=== PATIENT | male | born 1955 | race Caucasian/White ===

== ENCOUNTER 2016-07-19 09:51 | Inpatient (IN) | payer MEDICARE, MEDICAID ==
--- NOTE | 2016-07-19 10:39 | ED Physician Chart ---
Chief Complaint/HPI - Patient Information Date Seen:: 07/19/16 Time Seen:: 10:30 Chief Complaint:: increased agitation History of Present Illness:: exhibiting increased agitation and striking out at [facility]. Allergies:: Allergies Allergy/AdvReac Type Severity Reaction Status Date / Time Penicillins [PCN] Allergy Mild RASH Verified 07/19/16 10:09 Sulfa (Sulfonamide Allergy Mild RASH Verified 07/19/16 10:10 Antibiotics) Vitals:: Vital Signs - 8 hr 07/19/16 10:00 Temp 98.0 F HR 60 RR 20 BP 142/79 O2 Sat % 94 Historian:: Patient Review:: Transfer documents Reviewed Review of Systems - Review of Systems General/Constitutional: No fever, No chills Skin: No skin lesions Head: No headache Eyes: No loss of vision ENT: No earache, No sore throat Neck: No neck pain, No swelling Cardio Vascular: No chest pain, No palpitations, No orthopnea Pulmonary: No SOB GI: No nausea, No vomiting G/U: No dysuria, No hematuria Musculoskeletal: No bone or joint pain Psychiatric: Prior psych history, Depression Hematopoietic: No bruising Allergic/Immuno: No urticaria, No angioedema Neurological: No syncope, No focal symptoms Past Medical History - Past Medical History Past Medical History: HTN, Dyslipidemia, Other (hyperlipidemia; s/p TBI; major depression; schizophrenia; anemia; seizures; vitamin D deficiency) Family History: Diabetes Melitus, HTN Surgical History: other (right frontal craniotomy for TBI for than 15 years ago ; two surgeries left hand) Psychiatricy History: Depression, Schizophrenia Medication: Reviewed Family Medical History - Family Member Mother Hx Family Diabetes: Yes Physical Exam - Physical Examination General/Constitutional: Well-developed, well-nourished, Alert, No distress Other Gen/Cons comments:: A and O to the exact date Other Head comments:: right frontal craniotomy scar Eyes: Lids, conjuctiva normal, PERRL Skin: Nl inspection, No rash, No skin lesions, No ecchymosis, Well hydrated, No lymphadenopathy ENMT: External ears, nose nl, TM canals nl, Nasal exam nl, Lips, teeth, gums nl , Oropharynx nl, Tonsils nl Neck: No nuchal rigidity Respiratory: Nl effort/Exclusion, Clear to Auscultation Cardio Vascular: RRR GI: No tenderness/rebounding/guarding : No CVA tenderness Extremities: No tenderness or effusion Neuro/Psych: Alert/oriented, No focal deficits Misc: Normal back Labs/Radiology/EKG Results - Lab Results Results: Laboratory Results - last 24 hr 07/19/16 07/19/16 07/19/16 10:00 10:48 10:48 WBC 7.8 RBC 4.47 Hgb 13.3 Hct 39.1 MCV 87.5 MCH 29.7 MCHC Differential 33.9 RDW 12.2 Plt Count 222 MPV 8.2 Neutrophils % 66.2 Lymphocytes % 23.0 Monocytes % 8.6 Eosinophils % 1.6 Basophils % 0.6 Sodium 134 L Potassium 4.2 Chloride 105 Carbon Dioxide 25.4 Anion Gap 7.8 BUN 15 Creatinine 1.0 Est GFR ( Amer) > 60.0 Est GFR (Non-Af Amer) > 60.0 BUN/Creatinine Ratio 15.0 Glucose 88 Calcium 9.8 Total Bilirubin 0.3 AST 20 ALT 19 Alkaline Phosphatase 51 Total Protein 7.1 Albumin 4.2 Globulin 2.9 Albumin/Globulin Ratio 1.5 TSH Urine Source CLEAN C Urine Color YELLOW Urine Clarity SL. CLOUDY Urine pH 7.0 Ur Specific [place] 1.020 Urine Protein NEGATIVE Urine Glucose (UA) NEGATIVE Urine Ketones NEGATIVE Urine Blood NEGATIVE Urine Nitrate NEGATIVE Urine Bilirubin NEGATIVE Urine Urobilinogen 0.2 Ur Leukocyte Esterase NEGATIVE Urine RBC NONE SEEN Urine WBC NONE SEEN Ur Epithelial Cells RARE Urine Bacteria NONE SEEN 07/19/16 10:48 WBC RBC Hgb Hct MCV MCH MCHC Differential RDW Plt Count MPV Neutrophils % Lymphocytes % Monocytes % Eosinophils % Basophils % Sodium Potassium Chloride Carbon Dioxide Anion Gap BUN Creatinine Est GFR ( Amer) Est GFR (Non-Af Amer) BUN/Creatinine Ratio Glucose Calcium Total Bilirubin AST ALT Alkaline Phosphatase Total Protein Albumin Globulin Albumin/Globulin Ratio TSH 1.30 Urine Source Urine Color Urine Clarity Urine pH Ur Specific [place] Urine Protein Urine Glucose (UA) Urine Ketones Urine Blood Urine Nitrate Urine Bilirubin Urine Urobilinogen Ur Leukocyte Esterase Urine RBC Urine WBC Ur Epithelial Cells Urine Bacteria Laboratory Results - last 24 hr 07/19/16 07/19/16 07/19/16 10:00 10:48 10:48 WBC 7.8 RBC 4.47 Hgb 13.3 Hct 39.1 MCV 87.5 MCH 29.7 MCHC Differential 33.9 RDW 12.2 Plt Count 222 MPV 8.2 Neutrophils % 66.2 Lymphocytes % 23.0 Monocytes % 8.6 Eosinophils % 1.6 Basophils % 0.6 Sodium 134 L Potassium 4.2 Chloride 105 Carbon Dioxide 25.4 Anion Gap 7.8 BUN 15 Creatinine 1.0 Est GFR ( Amer) > 60.0 Est GFR (Non-Af Amer) > 60.0 BUN/Creatinine Ratio 15.0 Glucose 88 Calcium 9.8 Total Bilirubin 0.3 AST 20 ALT 19 Alkaline Phosphatase 51 Total Protein 7.1 Albumin 4.2 Globulin 2.9 Albumin/Globulin Ratio 1.5 TSH Urine Source CLEAN C Urine Color YELLOW Urine Clarity SL. CLOUDY Urine pH 7.0 Ur Specific [place] 1.020 Urine Protein NEGATIVE Urine Glucose (UA) NEGATIVE Urine Ketones NEGATIVE Urine Blood NEGATIVE Urine Nitrate NEGATIVE Urine Bilirubin NEGATIVE Urine Urobilinogen 0.2 Ur Leukocyte Esterase NEGATIVE Urine RBC NONE SEEN Urine WBC NONE SEEN Ur Epithelial Cells RARE Urine Bacteria NONE SEEN 07/19/16 10:48 WBC RBC Hgb Hct MCV MCH MCHC Differential RDW Plt Count MPV Neutrophils % Lymphocytes % Monocytes % Eosinophils % Basophils % Sodium Potassium Chloride Carbon Dioxide Anion Gap BUN Creatinine Est GFR ( Amer) Est GFR (Non-Af Amer) BUN/Creatinine Ratio Glucose Calcium Total Bilirubin AST ALT Alkaline Phosphatase Total Protein Albumin Globulin Albumin/Globulin Ratio TSH 1.30 Urine Source Urine Color Urine Clarity Urine pH Ur Specific [place] Urine Protein Urine Glucose (UA) Urine Ketones Urine Blood Urine Nitrate Urine Bilirubin Urine Urobilinogen Ur Leukocyte Esterase Urine RBC Urine WBC Ur Epithelial Cells Urine Bacteria ED Septic Shock - . Is Septic Shock (SBP<90, OR Lactate>4 mmol\L) present?: No - <6hrs of presentation: Vital Signs: Vital Signs - 8 hr 07/19/16 10:00 Temp 98.0 F HR 60 RR 20 BP 142/79 O2 Sat % 94 Reassessment (Disposition) - Reassessment Reassessment Condition:: Unchanged - Diagnosis Diagnosis:: schizophrenia; major depression; altered mental status; hyponatremia - Patient Disposition Admitted to:: Med/Surg Admitting Medical Physician:: Mario De Luna Condition at Disposition:: Stable, Unchanged ED Discharge Plan - Patient Disposition Instructions: Psychosis
[2016-07-19 10:56] LABS: % BASOPHILS 0.6 % (0.0-2.0); % EOSINOPHILS 1.6 % (0.0-5.0); % MONOCYTES 8.6 % (2.0-10.0); % NEUTROPHILS 66.2 % (40.0-80.0); HEMATOCRIT 39.1 % (39.0-49.0); HEMOGLOBIN 13.3 gm/dL (13.2-17.3); MEAN CELL VOLUME 87.5 fl (80-99); MEAN CORPUSCULAR HEMOGLOBIN 29.7 pg (26.0-30.0); MEAN CORPUSCULAR HGB CONC 33.9 pg (28.0-36.0); MEAN PLATELET VOLUME 8.2 fl; NEUTROPHILE ABSOLUTE 5.2 Th/cmm (1.8-8.0); PLATELET COUNT 222 Th/cmm (150-400); RED BLOOD COUNT 4.47 Mil/cmm (4.30-5.70); RED CELL DISTRIBUTION WIDTH 12.2 % (11.5-20.0); WHITE BLOOD COUNT 7.8 Th/cmm (4.8-10.8)
[2016-07-19 11:02] LABS: URINE BILIRUBIN NEGATIVE (NEGATIVE); URINE BLOOD NEGATIVE (NEGATIVE); URINE COLOR YELLOW; URINE GLUCOSE (UA) NEGATIVE (NEGATIVE); URINE KETONE NEGATIVE (NEGATIVE); URINE PROTEIN NEGATIVE (NEGATIVE); URINE UROBILINOGEN 0.2 E.U./dL (0.2 - 1.0)
[2016-07-19 11:08] LABS: URINE BACTERIA NONE SEEN /hpf (NONE SEEN); URINE EPITHELIAL CELLS RARE /lpf (FEW); URINE RBC NONE SEEN /hpf (0-5); URINE WBC NONE SEEN /hpf (0-5)
[2016-07-19 11:09] LABS: ALB/GLOB RATIO 1.5 (1.0-1.8); ALKALINE PHOSPHATASE 51 U/L (34-104); ANION GAP 7.8 (7.0-16.0); BILIRUBIN,TOTAL 0.3 mg/dL (0.3-1.0); BUN - UREA NITROGEN 15 mg/dL (7-25); CALCIUM SERUM 9.8 mg/dL (8.6-10.3); CARBON DIOXIDE 25.4 mEq/L (21.0-31.0); CHLORIDE 105 mEq/L (98-107); GLUCOSE 88 mg/dL (70-105); POTASSIUM SERUM 4.2 mEq/L (3.5-5.1); SGOT 20 U/L (13-39); SGPT/ALT 19 U/L (7-52); SODIUM SERUM 134 mEq/L (136-145)
[2016-07-19] MEDS ORDERED: Magnesium Hydroxide (MOM) 30 mL UDC PO PRN (14:55)
[2016-07-19] MEDS ORDERED: Maalox 30 mL Cup PO PRN ×2 (14:55→14:57)
[2016-07-19] MEDS ORDERED: Albuterol Nebulizer 2.5mg/3mL IH PRN (14:57)
--- NOTE | 2016-07-19 15:49 | Internal Medicine Prog Note ---
Internal Medicine Subjective - Subjective Service Date: 07/19/16 ([id number] hn) Internal Medicine Objective - Results Result Diagrams: 07/19/16 10:48 07/19/16 10:48 Recent Labs: Laboratory Last Values WBC 7.8 Th/cmm (4.8-10.8) 07/19/16 10:48 RBC 4.47 Mil/cmm (4.30-5.70) 07/19/16 10:48 Hgb 13.3 gm/dL (13.2-17.3) 07/19/16 10:48 Hct 39.1 % (39.0-49.0) 07/19/16 10:48 MCV 87.5 fl (80-99) 07/19/16 10:48 MCH 29.7 pg (26.0-30.0) 07/19/16 10:48 MCHC Differential 33.9 pg (28.0-36.0) 07/19/16 10:48 RDW 12.2 % (11.5-20.0) 07/19/16 10:48 Plt Count 222 Th/cmm (150-400) 07/19/16 10:48 MPV 8.2 fl 07/19/16 10:48 Neutrophils % 66.2 % (40.0-80.0) 07/19/16 10:48 Lymphocytes % 23.0 % (20.0-50.0) 07/19/16 10:48 Monocytes % 8.6 % (2.0-10.0) 07/19/16 10:48 Eosinophils % 1.6 % (0.0-5.0) 07/19/16 10:48 Basophils % 0.6 % (0.0-2.0) 07/19/16 10:48 Sodium 134 mEq/L (136-145) L 07/19/16 10:48 Potassium 4.2 mEq/L (3.5-5.1) 07/19/16 10:48 Chloride 105 mEq/L (98-107) 07/19/16 10:48 Carbon Dioxide 25.4 mEq/L (21.0-31.0) 07/19/16 10:48 Anion Gap 7.8 (7.0-16.0) 07/19/16 10:48 BUN 15 mg/dL (7-25) 07/19/16 10:48 Creatinine 1.0 mg/dL (0.7-1.3) 07/19/16 10:48 Est GFR ( Amer) > 60.0 ml/min (>90) 07/19/16 10:48 Est GFR (Non-Af Amer) > 60.0 ml/min 07/19/16 10:48 BUN/Creatinine Ratio 15.0 07/19/16 10:48 Glucose 88 mg/dL (70-105) 07/19/16 10:48 Calcium 9.8 mg/dL (8.6-10.3) 07/19/16 10:48 Total Bilirubin 0.3 mg/dL (0.3-1.0) 07/19/16 10:48 AST 20 U/L (13-39) 07/19/16 10:48 ALT 19 U/L (7-52) 07/19/16 10:48 Alkaline Phosphatase 51 U/L (34-104) 07/19/16 10:48 Total Protein 7.1 gm/dL (6.0-8.3) 07/19/16 10:48 Albumin 4.2 gm/dL (4.2-5.5) 07/19/16 10:48 Globulin 2.9 gm/dL 07/19/16 10:48 Albumin/Globulin Ratio 1.5 (1.0-1.8) 07/19/16 10:48 TSH 1.30 uIU/ml (0.34-5.60) 07/19/16 10:48 Urine Source CLEAN C 07/19/16 10:00 Urine Color YELLOW 07/19/16 10:00 Urine Clarity SL. CLOUDY (CLEAR) 07/19/16 10:00 Urine pH 7.0 07/19/16 10:00 Ur Specific [place] 1.020 (1.005-1.030) 07/19/16 10:00 Urine Protein NEGATIVE mg/dL (NEGATIVE) 07/19/16 10:00 Urine Glucose (UA) NEGATIVE mg/dL (NEGATIVE) 07/19/16 10:00 Urine Ketones NEGATIVE mg/dL (NEGATIVE) 07/19/16 10:00 Urine Blood NEGATIVE (NEGATIVE) 07/19/16 10:00 Urine Nitrate NEGATIVE (NEGATIVE) 07/19/16 10:00 Urine Bilirubin NEGATIVE (NEGATIVE) 07/19/16 10:00 Urine Urobilinogen 0.2 E.U./dL (0.2 - 1.0) 07/19/16 10:00 Ur Leukocyte Esterase NEGATIVE (NEGATIVE) 07/19/16 10:00 Urine RBC NONE SEEN /hpf (0-5) 07/19/16 10:00 Urine WBC NONE SEEN /hpf (0-5) 07/19/16 10:00 Ur Epithelial Cells RARE /lpf (FEW) 07/19/16 10:00 Urine Bacteria NONE SEEN /hpf (NONE SEEN) 07/19/16 10:00 - Physical Exam Vitals and I&O: Vital Signs Temp 98.1 F 07/19/16 15:11 Pulse 78 07/19/16 15:11 Resp 16 07/19/16 15:11 BP 132/78 07/19/16 15:11 Pulse Ox 98 07/19/16 15:11 Active Medications: Current Medications Acetaminophen (Tylenol) 650 mg PO Q4HR PRN PRN Reason: PAIN OF FEVER >100.5 Stop: 09/17/16 14:54 Al Hydrox/Mg Hydrox/Simethicone (Maalox) 30 ml PO Q6HR PRN PRN Reason: GI DISTRESS Stop: 09/17/16 14:54 Al Hydrox/Mg Hydrox/Simethicone (Maalox) 30 ml PO Q6HR PRN PRN Reason: Constipation Stop: 09/17/16 14:56 Albuterol Sulfate (Albuterol 2.5mg/3ml Neb Ud) 2.5 mg IH Q2HR PRN PRN Reason: Shortness of Breath or Wheeze Stop: 09/17/16 14:56 Amlodipine Besylate (Norvasc) 5 mg PO DAILY SANDI Stop: 09/18/16 08:59 Cholecalciferol (Vitamin D3) 3,000 iu PO DAILY SANDI Stop: 09/18/16 08:59 Docusate Sodium (Colace) 100 mg PO DAILY SANDI Stop: 09/18/16 08:59 Dextrose/Sodium Chloride (D5-0.9%Ns) 1,000 mls @ 100 mls/hr IV .Q10H SANDI Stop: 09/17/16 14:59 Lamotrigine (Lamictal) 100 mg PO BID SANDI PRN Reason: Protocol Stop: 09/17/16 16:59 Levetiracetam (Keppra) 500 mg PO DAILY SANDI Stop: 09/18/16 08:59 Lorazepam (Ativan) 1 mg IV Q4HR PRN; Protocol PRN Reason: Seizure Stop: 09/17/16 14:56 Magnesium Hydroxide (Milk Of Magnesia) 30 ml PO HS PRN PRN Reason: Constipation Stop: 09/17/16 14:54 Meclizine HCl (Antivert) 25 mg PO DAILY PRN PRN Reason: Nausea / Vomiting Stop: 09/17/16 14:56 Miscellaneous (Levetiracetam [Keppra]) 1,500 mg PO DAILY SANDI Stop: 09/18/16 08:59 Ondansetron HCl (Zofran) 4 mg IV Q8H PRN PRN Reason: Nausea / Vomiting Stop: 09/17/16 14:56 Risperidone (Risperdal) 1 mg PO Q12H SANDI PRN Reason: Protocol Stop: 09/17/16 14:59 Simvastatin (Zocor) 20 mg PO HS SANDI PRN Reason: Protocol Stop: 09/17/16 20:59 Trazodone HCl (Desyrel) 100 mg PO HS SANDI PRN Reason: Protocol Stop: 09/17/16 20:59 - Procedures Procedures: Procedures Procedure Code Date GROUP PSYCHOTHERAPY 62334 06/08/15 GROUP PSYCHOTHERAPY GZHZZZZ 06/08/15 Internal Medicine Assmt/Plan - Assessment Assessment: HYPONATREMIA ALOC AGITATION
--- NOTE | 2016-07-19 16:25 | History & Physical ---
CHIEF COMPLAINT: Agitation and ALOC. HISTORY OF PRESENT ILLNESS: This is a 60-year-old male who is a resident of [facility], who was sent here to [facility] for increase of agitation and change in mental status. The patient did not have any fevers, any chills or any chest pain. For medical evaluation, the patient is now admitted to the Med/Surg unit. PAST MEDICAL HISTORY: Hypertension, dyslipidemia, hyperlipidemia, major depression, schizophrenia, anemia, seizures, vitamin D deficiency. FAMILY HISTORY: Hypertension, diabetes. SURGICAL HISTORY: Right frontal craniotomy for TBI for more than 15 years. MEDICATIONS: Please see medication reconciliation sheet. REVIEW OF SYSTEMS: GENERAL: Denies any fevers, any chills. CARDIOVASCULAR: Denies any chest pain. RESPIRATORY: Denies any shortness of breath or cough. MUSCULOSKELETAL: Denies any joint pain or any edema. All other systems are reviewed by me and all are negative. PHYSICAL EXAMINATION: GENERAL: The patient is well developed, well nourished, in no apparent distress. VITAL SIGNS: Temperature 98.1, heart rate 78, blood pressure ____/70, respirations 16, O2 98%. HEENT: Head; normocephalic, atraumatic. NECK: Supple. No mass. LUNGS: Clear bilaterally. HEART: Regular rhythm. ABDOMEN: Soft, nontender, nondistended. ASSESSMENT: Hyponatremia, altered level of consciousness agitation, hypertension, hyperlipidemia, schizophrenia and seizures. PLAN: The patient to be admitted to the med/surg unit. The patient will have a consultation with Dr. Arguello. Keep the patient on IV fluids for hydration. CBC and BMP will be monitored. We will continue to monitor the patient. JOB# [id number]
--- NOTE | 2016-07-19 16:26 | Admit Criteria Form ---
Admit Criteria Forms - Admit Criteria Diagnosis: PSYCHIATRIC DISORDERS Clinical Indications for Inpatient Care (Place 'X' for any and all applicable criteria): Ongoing inpatient care may be needed for ANY ONE of the following(1)(2)(3)(4)(6) (7)(8): [ ]I. Danger to self or others not manageable at lower level of care. [ ]II. Grave disability (eg, inability to perform self care necessary at lower level of care) [X ]III. Agitation or inappropriate behavior interfering with care for primary condition (eg, attempting to discontinue lines or drains prematurely, unable to cooperate with respiratory care) [ ]IV. Severe disability or disorder indicated by ALL of the following: [ ]a) Severe behavioral health disorder-related symptoms or condition indicated by ANY ONE of the following: [ ]i) Severe problem with cognition, memory, judgment, or impulse control [ ]ii) Severe clinical manifestations (eg, hallucinations, delusions, other acute psychotic symptoms, klaudia, extreme agitation or anxiety) [ ]b) Patient management at lower level of care is not feasible until acute intervention or modification is initiated. Extended stay beyond goal length of stay for the primary condition may be indicated when ANY ONE of the following is present: (1)(2)(3)(4): [ ]a) Patient is a danger to self or others and not manageable at lower level of care. [ ]b) Behavior crisis management, including physical or chemical restraints, is required and is not available at a lower level of care. [ ]c) Behavioral symptoms (e.g., agitation, somnolence, inappropriate behavior) are present, and are not manageable at a lower level of care. [ ]d) Patient cannot understand follow-up treatment and crisis plan. [ ]e) Provider and supports are not sufficiently available at lower level of care. [ ]f) Patient cannot participate (e.g., verify absence of plan for harm) and is in needed of monitoring. The original [facility] [employer] content created by [facility] [email or web address] has been revised. The portions of the content which have been revised are identified through the use of italic text or in bold, and [facility] [email or web address] has neither reviewed nor approved the modified material. All other unmodified content is copyright [facility] [email or web address]. Please see references footnoted in the original [facility] edition 2016 Admit Criteria Met?: Yes
[2016-07-19] MEDS ORDERED: Pneumococcal Vaccine 0.5 mL Vial IM ONE (17:34)
[2016-07-19] MEDS: D5-0.9%NS 1,000 ML IV SCH (17:37)
[2016-07-20] MEDS: D5-0.9%NS 1,000 ML IV SCH ×2 (03:23→19:19)
[2016-07-20 07:07] LABS: % BASOPHILS 0.9 % (0.0-2.0); % EOSINOPHILS 2.2 % (0.0-5.0); % LYMPHOCYTES 24.8 % (20.0-50.0); % MONOCYTES 7.8 % (2.0-10.0); % NEUTROPHILS 64.3 % (40.0-80.0); HEMOGLOBIN 13.4 gm/dL (13.2-17.3); MEAN CELL VOLUME 87.7 fl (80-99); MEAN CORPUSCULAR HEMOGLOBIN 29.4 pg (26.0-30.0); MEAN CORPUSCULAR HGB CONC 33.5 pg (28.0-36.0); MEAN PLATELET VOLUME 8.7 fl; NEUTROPHILE ABSOLUTE 4.1 Th/cmm (1.8-8.0); PLATELET COUNT 215 Th/cmm (150-400); RED BLOOD COUNT 4.56 Mil/cmm (4.30-5.70); WHITE BLOOD COUNT 6.4 Th/cmm (4.8-10.8)
[2016-07-20 07:24] LABS: ANION GAP 5.4 (7.0-16.0); BUN - UREA NITROGEN 16 mg/dL (7-25); BUN/CREATININE RATIO 14.5; CALCIUM SERUM 10.3 mg/dL (8.6-10.3); CARBON DIOXIDE 26.5 mEq/L (21.0-31.0); CHLORIDE 106 mEq/L (98-107); CREATININE - SERUM 1.1 mg/dL (0.7-1.3); GLUCOSE 121 mg/dL (70-105); POTASSIUM SERUM 3.9 mEq/L (3.5-5.1); SODIUM SERUM 134 mEq/L (136-145)
--- NOTE | 2016-07-20 16:30 | Internal Medicine Prog Note ---
Internal Medicine Subjective - Subjective Service Date: 07/20/16 Patient seen and examined:: with staff Patient is:: awake Per staff patient is:: no adverse event Internal Medicine Objective - Results Result Diagrams: 07/20/16 06:35 07/20/16 06:35 Recent Labs: Laboratory Last Values WBC 6.4 Th/cmm (4.8-10.8) 07/20/16 06:35 RBC 4.56 Mil/cmm (4.30-5.70) 07/20/16 06:35 Hgb 13.4 gm/dL (13.2-17.3) 07/20/16 06:35 Hct 40.0 % (39.0-49.0) 07/20/16 06:35 MCV 87.7 fl (80-99) 07/20/16 06:35 MCH 29.4 pg (26.0-30.0) 07/20/16 06:35 MCHC Differential 33.5 pg (28.0-36.0) 07/20/16 06:35 RDW 12.0 % (11.5-20.0) 07/20/16 06:35 Plt Count 215 Th/cmm (150-400) 07/20/16 06:35 MPV 8.7 fl 07/20/16 06:35 Neutrophils % 64.3 % (40.0-80.0) 07/20/16 06:35 Lymphocytes % 24.8 % (20.0-50.0) 07/20/16 06:35 Monocytes % 7.8 % (2.0-10.0) 07/20/16 06:35 Eosinophils % 2.2 % (0.0-5.0) 07/20/16 06:35 Basophils % 0.9 % (0.0-2.0) 07/20/16 06:35 Sodium 134 mEq/L (136-145) L 07/20/16 06:35 Potassium 3.9 mEq/L (3.5-5.1) 07/20/16 06:35 Chloride 106 mEq/L (98-107) 07/20/16 06:35 Carbon Dioxide 26.5 mEq/L (21.0-31.0) 07/20/16 06:35 Anion Gap 5.4 (7.0-16.0) L 07/20/16 06:35 BUN 16 mg/dL (7-25) 07/20/16 06:35 Creatinine 1.1 mg/dL (0.7-1.3) 07/20/16 06:35 Est GFR ( Amer) > 60.0 ml/min (>90) 07/20/16 06:35 Est GFR (Non-Af Amer) > 60.0 ml/min 07/20/16 06:35 BUN/Creatinine Ratio 14.5 07/20/16 06:35 Glucose 121 mg/dL (70-105) H 07/20/16 06:35 Calcium 10.3 mg/dL (8.6-10.3) 07/20/16 06:35 Total Bilirubin 0.3 mg/dL (0.3-1.0) 07/19/16 10:48 AST 20 U/L (13-39) 07/19/16 10:48 ALT 19 U/L (7-52) 07/19/16 10:48 Alkaline Phosphatase 51 U/L (34-104) 07/19/16 10:48 Total Protein 7.1 gm/dL (6.0-8.3) 07/19/16 10:48 Albumin 4.2 gm/dL (4.2-5.5) 07/19/16 10:48 Globulin 2.9 gm/dL 07/19/16 10:48 Albumin/Globulin Ratio 1.5 (1.0-1.8) 07/19/16 10:48 TSH 1.30 uIU/ml (0.34-5.60) 07/19/16 10:48 Urine Source CLEAN C 07/19/16 10:00 Urine Color YELLOW 07/19/16 10:00 Urine Clarity SL. CLOUDY (CLEAR) 07/19/16 10:00 Urine pH 7.0 07/19/16 10:00 Ur Specific [place] 1.020 (1.005-1.030) 07/19/16 10:00 Urine Protein NEGATIVE mg/dL (NEGATIVE) 07/19/16 10:00 Urine Glucose (UA) NEGATIVE mg/dL (NEGATIVE) 07/19/16 10:00 Urine Ketones NEGATIVE mg/dL (NEGATIVE) 07/19/16 10:00 Urine Blood NEGATIVE (NEGATIVE) 07/19/16 10:00 Urine Nitrate NEGATIVE (NEGATIVE) 07/19/16 10:00 Urine Bilirubin NEGATIVE (NEGATIVE) 07/19/16 10:00 Urine Urobilinogen 0.2 E.U./dL (0.2 - 1.0) 07/19/16 10:00 Ur Leukocyte Esterase NEGATIVE (NEGATIVE) 07/19/16 10:00 Urine RBC NONE SEEN /hpf (0-5) 07/19/16 10:00 Urine WBC NONE SEEN /hpf (0-5) 07/19/16 10:00 Ur Epithelial Cells RARE /lpf (FEW) 07/19/16 10:00 Urine Bacteria NONE SEEN /hpf (NONE SEEN) 07/19/16 10:00 RPR NONREACTIVE (NONREACTIVE) 07/19/16 10:48 - Physical Exam Vitals and I&O: Vital Signs Temp 98.1 F 07/20/16 08:00 Pulse 71 07/20/16 09:48 Resp 18 07/20/16 08:00 BP 138/77 07/20/16 09:48 Pulse Ox 97 07/20/16 04:00 Intake & Output 07/19/16 07/20/16 07/20/16 18:59 06:59 18:59 Intake Total 650 Output Total 400 Balance 250 Intake: Oral 650 Output: Urine 400 Other: # Voids 2 # Bowel Movements 0 Stool Characteristics Formed Active Medications: Current Medications Acetaminophen (Tylenol) 650 mg PO Q4HR PRN PRN Reason: PAIN OF FEVER >100.5 Stop: 09/17/16 14:54 Al Hydrox/Mg Hydrox/Simethicone (Maalox) 30 ml PO Q6HR PRN PRN Reason: GI DISTRESS Stop: 09/17/16 14:54 Al Hydrox/Mg Hydrox/Simethicone (Maalox) 30 ml PO Q6HR PRN PRN Reason: Constipation Stop: 09/17/16 14:56 Albuterol Sulfate (Albuterol 2.5mg/3ml Neb Ud) 2.5 mg IH Q2HR PRN PRN Reason: Shortness of Breath or Wheeze Stop: 09/17/16 14:56 Amlodipine Besylate (Norvasc) 5 mg PO DAILY SANDI Stop: 09/18/16 08:59 Last Admin: 07/20/16 09:48 Dose: 5 mg Cholecalciferol (Vitamin D3) 3,000 iu PO DAILY [facility] Stop: 09/18/16 08:59 Last Admin: 07/20/16 09:48 Dose: 3,000 iu Docusate Sodium (Colace) 100 mg PO DAILY SANDI Stop: 09/18/16 08:59 Last Admin: 07/20/16 09:48 Dose: 100 mg Dextrose/Sodium Chloride (D5-0.9%Ns) 1,000 mls @ 100 mls/hr IV .Q10H SANDI Stop: 09/17/16 14:59 Last Admin: 07/20/16 03:23 Dose: Not Given Lamotrigine (Lamictal) 100 mg PO BID SANDI PRN Reason: Protocol Stop: 09/17/16 16:59 Last Admin: 07/20/16 09:49 Dose: 100 mg Levetiracetam (Keppra) 500 mg PO DAILY [facility] Stop: 09/18/16 08:59 Last Admin: 07/20/16 09:49 Dose: 500 mg Levetiracetam (Keppra) 1,500 mg PO Q24H [facility] Stop: 09/18/16 08:59 Lorazepam (Ativan) 1 mg IV Q4HR PRN; Protocol PRN Reason: Seizure Stop: 09/17/16 14:56 Magnesium Hydroxide (Milk Of Magnesia) 30 ml PO HS PRN PRN Reason: Constipation Stop: 09/17/16 14:54 Meclizine HCl (Antivert) 25 mg PO DAILY PRN PRN Reason: Nausea / Vomiting Stop: 09/17/16 14:56 Ondansetron HCl (Zofran) 4 mg IV Q8H PRN PRN Reason: Nausea / Vomiting Stop: 09/17/16 14:56 Risperidone (Risperdal) 1 mg PO Q12H SANDI PRN Reason: Protocol Stop: 09/17/16 14:59 Last Admin: 07/20/16 03:13 Dose: 1 mg Simvastatin (Zocor) 20 mg PO HS SANDI PRN Reason: Protocol Stop: 09/17/16 20:59 Last Admin: 07/19/16 22:50 Dose: 20 mg Trazodone HCl (Desyrel) 100 mg PO HS SANDI PRN Reason: Protocol Stop: 09/17/16 20:59 Last Admin: 07/19/16 22:49 Dose: 100 mg General: alert HEENT: NC/AT, PERRLA Neck: Supple Lungs: CTAB Cardiovascular: RRR, Normal S1, Normal S2, without murmur Abdomen: soft non-tender, non-distended, positive bowel sound Neurological: no change - Procedures Procedures: Procedures Procedure Code Date GROUP PSYCHOTHERAPY 32991 06/08/15 GROUP PSYCHOTHERAPY GZHZZZZ 06/08/15 Internal Medicine Assmt/Plan - Assessment Assessment: HYPONATREMIA ALOC AGITATION - Plan Plan: monitor electrolytes fall precautions cpm
--- NOTE | 2016-07-20 22:41 | Consultation ---
REASON FOR CONSULTATION: Psych eval. HISTORY OF PRESENT ILLNESS: This is a 60-year-old male coming from [facility] exhibiting increased agitation, striking out at the [facility]. On [id number], the patient is not a very good historian, states that he does not really know why he is here. He has no idea why he is in the hospital, sort of confused as to where he lives even. Denies overt depression, denies overt anxiety. States he sleeps okay with medicine. No distress noted at this time. No anhedonia noted. States he is eating okay. PAST PSYCHIATRIC HISTORY: He denies, but is a poor historian. PAST PSYCHIATRIC HISTORY: Noted history of schizophrenia. Denies any suicide history. FAMILY HISTORY: Noncontributory. SOCIAL HISTORY: Born in [place]. He states he is . States he has two children who live in [place]. He states he uses marijuana, "legally." He also attests alcohol use. 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 Denies any legal troubles. PAST MEDICAL HISTORY: Reviewed. ALLERGIES: Reviewed. MENTAL STATUS EXAMINATION: Stated age, fair eye contact, long hair. Speech is within normal limits. Mood is "fine." Affect is constricted. Thought processes were confused and disoriented. No SI, no HI, no evidence of psychosis overtly. Concentration was diminished. Impulse control, questionable. Insight diminished. Judgment diminished. PROVISIONAL DIAGNOSIS: Schizophrenia. Under medical, please see full H and P. RECOMMENDATIONS AND PLAN: Continue to monitor. Continue Risperdal at current dose, Lamictal at current dose, and trazodone at current dose. If the patient's behaviors do persist and continue, he may need transfer to the Geropsych Unit given his age. I will continue to monitor and follow up. Recommend titration of Risperdal given tolerability. [facility]# [id number]
== END 2016-07-20 19:30 | DRG 641 ==
LOC: ER 09:51 → MSI 14:00
PROVIDERS: ADMIT Internal Medicine; ATTEND Internal Medicine
DX: E87.1 Hypo-osmolality and hyponatremia (principal); R56.9 Unspecified convulsions; F20.9 Schizophrenia, unspecified; I10 Essential (primary) hypertension; R40.4 Transient alteration of awareness; E78.5 Hyperlipidemia, unspecified; F32.9 Major depressive disorder, single episode, unspecified; E55.9 Vitamin D deficiency, unspecified; Z88.0 Allergy status to penicillin; Z88.2 Allergy status to sulfonamides; Z83.3 Family history of diabetes mellitus; Z82.49 Family history of ischemic heart disease and other diseases of the circulatory system
CPT/HCPCS: 36415-UA; 80048-TC; 80053-TC; 81001-TC; 84443-TC; 85025-TC; 86592-TC; 93005; 94760; Z7610

== ENCOUNTER 2016-07-20 19:30 | Inpatient (IN) | payer MEDICARE, MEDICAID ==
[2016-07-20 21:43] VITALS: BP 140/84
[2016-07-20] MEDS ORDERED: Magnesium Hydroxide (MOM) 30 mL UDC PO PRN (21:46)
[2016-07-20] MEDS ORDERED: Maalox 30 mL Cup PO PRN (21:46)
--- NOTE | 2016-07-21 10:08 | Internal Medicine Prog Note ---
Internal Medicine Subjective - Subjective Service Date: 07/21/16 Patient seen and examined:: with staff Patient is:: awake Per staff patient is:: no adverse event Internal Medicine Objective - Physical Exam Vitals and I&O: Vital Signs Temp 97.7 F 07/21/16 06:57 Pulse 80 07/21/16 08:27 Resp 19 07/21/16 06:57 BP 141/93 07/21/16 08:27 Pulse Ox 97 07/21/16 06:57 Intake & Output 07/20/16 07/21/16 07/21/16 18:59 06:59 18:59 Other: # Voids 2 Active Medications: Current Medications Acetaminophen (Tylenol) 650 mg PO Q4HR PRN PRN Reason: PAIN OF FEVER >100.5 Stop: 09/18/16 21:45 Al Hydrox/Mg Hydrox/Simethicone (Maalox) 30 ml PO Q6HR PRN PRN Reason: GI DISTRESS Stop: 09/18/16 21:45 Amlodipine Besylate (Norvasc) 5 mg PO DAILY [facility] Stop: 09/19/16 08:59 Last Admin: 07/21/16 08:27 Dose: 5 mg Cholecalciferol (Vitamin D3) 3,000 iu PO DAILY [facility] Stop: 09/19/16 08:59 Last Admin: 07/21/16 08:27 Dose: 3,000 iu Docusate Sodium (Colace) 100 mg PO DAILY [facility] Stop: 09/19/16 08:59 Last Admin: 07/21/16 08:26 Dose: 100 mg Lamotrigine (Lamictal) 100 mg PO BID [facility] PRN Reason: Protocol Stop: 09/19/16 08:59 Levetiracetam (Keppra) 500 mg PO DAILY [facility] Stop: 09/19/16 08:59 Last Admin: 07/21/16 08:26 Dose: 500 mg Levetiracetam (Keppra) 1,500 mg PO 1700 [facility] Stop: 09/19/16 16:59 Lorazepam (Ativan) 0.5 mg PO Q4HR PRN; Protocol PRN Reason: Anxiety Stop: 08/19/16 21:42 Magnesium Hydroxide (Milk Of Magnesia) 30 ml PO HS PRN PRN Reason: Constipation Stop: 09/18/16 21:45 Risperidone (Risperdal) 1 mg PO Q12H [facility] PRN Reason: Protocol Stop: 09/18/16 21:59 Last Admin: 07/20/16 23:12 Dose: Not Given Simvastatin (Zocor) 20 mg PO HS [facility] PRN Reason: Protocol Stop: 09/19/16 20:59 Trazodone HCl (Desyrel) 100 mg PO HS [facility] PRN Reason: Protocol Stop: 09/19/16 20:59 Zolpidem Tartrate (Ambien) 5 mg PO HS PRN PRN Reason: Insomnia Stop: 09/18/16 21:42 General: alert HEENT: NC/AT, PERRLA Neck: Supple Lungs: CTAB Cardiovascular: RRR, Normal S1, Normal S2, without murmur Abdomen: soft non-tender, non-distended Extremities: clear - Procedures Procedures: Procedures Procedure Code Date GROUP PSYCHOTHERAPY 14813 06/08/15 GROUP PSYCHOTHERAPY GZHZZZZ 06/08/15 Internal Medicine Assmt/Plan - Assessment Assessment: HYPONATREMIA AGITATION - Plan Plan: MONITOR ELECTROLYTES FALL PRECAUTIONS CPM
[2016-07-22 07:30] LABS: ANION GAP 9.1 (7.0-16.0); BUN - UREA NITROGEN 20 mg/dL (7-25); CALCIUM SERUM 10.5 mg/dL (8.6-10.3); CHLORIDE 106 mEq/L (98-107); GLUCOSE 105 mg/dL (70-105); POTASSIUM SERUM 4.1 mEq/L (3.5-5.1); SODIUM SERUM 134 mEq/L (136-145)
--- NOTE | 2016-07-22 14:33 | Internal Medicine Prog Note ---
Internal Medicine Subjective - Subjective Service Date: 07/22/16 Patient seen and examined:: with staff Patient is:: awake Per staff patient is:: no adverse event Internal Medicine Objective - Results Result Diagrams: 07/22/16 06:56 Recent Labs: Laboratory Last Values Sodium 134 mEq/L (136-145) L 07/22/16 06:56 Potassium 4.1 mEq/L (3.5-5.1) 07/22/16 06:56 Chloride 106 mEq/L (98-107) 07/22/16 06:56 Carbon Dioxide 23.0 mEq/L (21.0-31.0) 07/22/16 06:56 Anion Gap 9.1 (7.0-16.0) 07/22/16 06:56 BUN 20 mg/dL (7-25) 07/22/16 06:56 Creatinine 1.0 mg/dL (0.7-1.3) 07/22/16 06:56 Est GFR ( Amer) > 60.0 ml/min (>90) 07/22/16 06:56 Est GFR (Non-Af Amer) > 60.0 ml/min 07/22/16 06:56 BUN/Creatinine Ratio 20.0 07/22/16 06:56 Glucose 105 mg/dL (70-105) 07/22/16 06:56 Calcium 10.5 mg/dL (8.6-10.3) H 07/22/16 06:56 - Physical Exam Vitals and I&O: Vital Signs Temp 97.3 F 07/21/16 20:01 Pulse 91 07/22/16 09:50 Resp 14 07/22/16 08:58 BP 139/85 07/22/16 09:50 Pulse Ox 98 07/22/16 07:00 Intake & Output 07/21/16 07/22/16 07/22/16 18:59 06:59 18:59 Intake Total 800 240 Balance 800 240 Intake: Oral 800 240 Other: # Voids 3 1 # Bowel Movements 1 Active Medications: Current Medications Acetaminophen (Tylenol) 650 mg PO Q4HR PRN PRN Reason: PAIN OF FEVER >100.5 Stop: 09/18/16 21:45 Al Hydrox/Mg Hydrox/Simethicone (Maalox) 30 ml PO Q6HR PRN PRN Reason: GI DISTRESS Stop: 09/18/16 21:45 Amlodipine Besylate (Norvasc) 5 mg PO DAILY [facility] Stop: 09/19/16 08:59 Last Admin: 07/22/16 09:50 Dose: 5 mg Cholecalciferol (Vitamin D3) 3,000 iu PO DAILY [facility] Stop: 09/19/16 08:59 Last Admin: 07/22/16 09:50 Dose: 3,000 iu Docusate Sodium (Colace) 100 mg PO DAILY [facility] Stop: 09/19/16 08:59 Last Admin: 07/22/16 09:50 Dose: Not Given Lamotrigine (Lamictal) 100 mg PO BID [facility] PRN Reason: Protocol Stop: 09/19/16 08:59 Last Admin: 07/22/16 09:50 Dose: 100 mg Levetiracetam (Keppra) 500 mg PO DAILY [facility] Stop: 09/19/16 08:59 Last Admin: 07/22/16 09:50 Dose: 500 mg Levetiracetam (Keppra) 1,500 mg PO 1700 [facility] Stop: 09/19/16 16:59 Last Admin: 07/21/16 16:18 Dose: 1,500 mg Lorazepam (Ativan) 0.5 mg PO Q4HR PRN; Protocol PRN Reason: Anxiety Stop: 08/19/16 21:42 Last Admin: 07/21/16 15:45 Dose: 0.5 mg Magnesium Hydroxide (Milk Of Magnesia) 30 ml PO HS PRN PRN Reason: Constipation Stop: 09/18/16 21:45 Risperidone (Risperdal) 1 mg PO Q12H [facility] PRN Reason: Protocol Stop: 09/18/16 21:59 Last Admin: 07/22/16 09:50 Dose: 1 mg Simvastatin (Zocor) 20 mg PO HS [facility] PRN Reason: Protocol Stop: 09/19/16 20:59 Last Admin: 07/21/16 20:54 Dose: 20 mg Trazodone HCl (Desyrel) 100 mg PO HS [facility] PRN Reason: Protocol Stop: 09/19/16 20:59 Last Admin: 07/21/16 20:53 Dose: 100 mg Zolpidem Tartrate (Ambien) 5 mg PO HS PRN PRN Reason: Insomnia Stop: 09/18/16 21:42 General: alert HEENT: NC/AT, PERRLA Neck: Supple Lungs: CTAB Cardiovascular: RRR, Normal S1, Normal S2, without murmur Abdomen: soft non-tender, non-distended Extremities: clear - Procedures Procedures: Procedures Procedure Code Date GROUP PSYCHOTHERAPY 44063 06/08/15 GROUP PSYCHOTHERAPY GZHZZZZ 06/08/15 Internal Medicine Assmt/Plan - Assessment Assessment: HYPONATREMIA AGITATION - Plan Plan: MONITOR ELECTROLYTES FALL PRECAUTIONS CPM
--- NOTE | 2016-07-22 22:48 | Progress Notes ---
JUSTIFICATION FOR HOSPITALIZATION: The patient is transferred from [facility], increased agitation, paranoid, delusional. CHIEF COMPLAINT: "I am leaving today, I am going to [place]." HISTORY OF PRESENT ILLNESS: A 60-year-old male coming from [facility], more agitated, striking out, paranoid, delusional, believing he is going to [place], making bizarre statements about President Obama and President Marcos, calling Obama "a crank addict" and Marcos "the KKK" talking about ____ in [place] believing that he is leaving today. PAST PSYCHIATRIC HISTORY: Schizophrenia. FAMILY HISTORY: Noncontributory. SOCIAL HISTORY: Born in [place], , he states he has 2 children, states he uses marijuana, states he lives in [place], but in fact lives in [facility]. ALLERGIES: Reviewed. MENTAL STATUS EXAMINATION: Stated age, fair eye contact, long hair. Speech rambling. Mood "okay." Affect angry. Thought processes, confused, disoriented. No SI, no HI. He appears to be delusional, diminished concentration, poor impulse control. Insight diminished, judgment diminished. PROVISIONAL DIAGNOSIS: Schizophrenia, poor medication and treatment compliance and medical, please see full H and P. ESTIMATED LENGTH OF STAY: 7-10 days. ASSESSMENT: The patient is currently in the hospital, delusional, psychotic, striking out, not safe for discharge. PLAN: We will continue to monitor. The patient remains symptomatic, not safe for a lower level of care at this time. Due to the persistence of his symptoms, we will continue to adjust his medications and titrate appropriately. JOB# [id number]
--- NOTE | 2016-07-23 00:28 | Consultation ---
Covering for Dr. Arguello. IDENTIFYING DATA: The patient is a 60-year-old male. JUSTIFICATION FOR ADMISSION: The patient was brought in here for disorganized thought process. HISTORY OF PRESENT ILLNESS: The patient is a 60-year-old male with a previous history of schizophrenia with extensive history of inpatient psychiatric hospitalizations, who presents very disorganized and psychotic. Today, on [id number] evaluation, the patient reports that he is from [place], but also reporting that he is part of the [facility] and also then starts talking about the new president being a KKK, very difficult to orient and engage in a linear conversation. Throughout the interview, he presents disorganized, inappropriate laughters, and observed to be responding to internal stimuli. PAST MEDICAL HISTORY: Hyperlipidemia, history of traumatic brain injury, hypertension, anemia, epilepsy, and vitamin D deficiency. ALLERGIES TO MEDICATION: PENICILLIN and SULFA. OUTSIDE MEDICATIONS: The patient has been on Ativan, Cogentin, Keppra mg b.i.d., Lamictal 100 mg b.i.d., Norvasc, Risperdal 1 mg twice a day, Seroquel 400 mg at bedtime, vitamin D, and Zocor. FAMILY HISTORY: Noncontributory. SOCIAL HISTORY: Living in [facility]. Denies any history of alcohol or drug use. LABS: Pending. MENTAL STATUS EXAMINATION: He is calm in his room, easily agitated at times, disorganized, psychotic, paranoid, delusional, responding to internal stimuli when in labile mood with poor insight and judgment and impulse control. ASSESSMENT AND PLAN: The patient is a 60-year-old male with a previous history of paranoid schizophrenia who has been psychiatrically hospitalized multiple times, was admitted for an acute psychotic exacerbation. PRIMARY DIAGNOSES: Paranoid schizophrenia. SECONDARY DIAGNOSIS: None. MEDICAL DIAGNOSIS: As noted above. RECOMMENDATION: 1. Provide supportive therapy. 2. We will reinitiate medications, discontinue the Risperidone. 3. We will continue with the psychiatric code. 4. Continue to monitor and evaluate him. ESTIMATED LENGTH OF STAY: Between 5-10 days. DISCHARGE CRITERIA: Demonstrate euthymic mood. No psychotic symptoms. No aggression. No irritability. [facility]# [id number]
--- NOTE | 2016-07-23 15:50 | Internal Medicine Prog Note ---
Internal Medicine Subjective - Subjective Patient seen and examined:: with staff, chart reviewed Patient is:: awake, verbal, interactive Per staff patient is:: no adverse event, agitated, combative, confused Internal Medicine Objective - Results Result Diagrams: 07/22/16 06:56 Recent Labs: Laboratory Last Values Sodium 134 mEq/L (136-145) L 07/22/16 06:56 Potassium 4.1 mEq/L (3.5-5.1) 07/22/16 06:56 Chloride 106 mEq/L (98-107) 07/22/16 06:56 Carbon Dioxide 23.0 mEq/L (21.0-31.0) 07/22/16 06:56 Anion Gap 9.1 (7.0-16.0) 07/22/16 06:56 BUN 20 mg/dL (7-25) 07/22/16 06:56 Creatinine 1.0 mg/dL (0.7-1.3) 07/22/16 06:56 Est GFR ( Amer) > 60.0 ml/min (>90) 07/22/16 06:56 Est GFR (Non-Af Amer) > 60.0 ml/min 07/22/16 06:56 BUN/Creatinine Ratio 20.0 07/22/16 06:56 Glucose 105 mg/dL (70-105) 07/22/16 06:56 Calcium 10.5 mg/dL (8.6-10.3) H 07/22/16 06:56 - Physical Exam Vitals and I&O: Vital Signs Temp 98.3 F 07/23/16 15:12 Pulse 90 07/23/16 15:12 Resp 18 07/23/16 15:12 BP 140/93 07/23/16 15:12 Pulse Ox 98 07/23/16 15:12 Intake & Output 07/22/16 07/23/16 07/23/16 18:59 06:59 18:59 Intake Total 480 Balance 480 Intake: Oral 480 Other: # Voids 2 # Bowel Movements 0 Active Medications: Current Medications Acetaminophen (Tylenol) 650 mg PO Q4HR PRN PRN Reason: PAIN OF FEVER >100.5 Stop: 09/18/16 21:45 Al Hydrox/Mg Hydrox/Simethicone (Maalox) 30 ml PO Q6HR PRN PRN Reason: GI DISTRESS Stop: 09/18/16 21:45 Amlodipine Besylate (Norvasc) 5 mg PO DAILY [facility] Stop: 09/19/16 08:59 Last Admin: 07/23/16 09:15 Dose: 5 mg Cholecalciferol (Vitamin D3) 3,000 iu PO DAILY [facility] Stop: 09/19/16 08:59 Last Admin: 07/23/16 09:14 Dose: 3,000 iu Docusate Sodium (Colace) 100 mg PO DAILY [facility] Stop: 09/19/16 08:59 Last Admin: 07/23/16 09:15 Dose: 100 mg Lamotrigine (Lamictal) 100 mg PO BID [facility] PRN Reason: Protocol Stop: 09/19/16 08:59 Last Admin: 07/23/16 09:14 Dose: 100 mg Levetiracetam (Keppra) 500 mg PO DAILY [facility] Stop: 09/19/16 08:59 Last Admin: 07/23/16 09:14 Dose: 500 mg Levetiracetam (Keppra) 1,500 mg PO 1700 [facility] Stop: 09/19/16 16:59 Last Admin: 07/22/16 16:31 Dose: 1,500 mg Lorazepam (Ativan) 0.5 mg PO Q4HR PRN; Protocol PRN Reason: Anxiety Stop: 08/19/16 21:42 Last Admin: 07/21/16 15:45 Dose: 0.5 mg Magnesium Hydroxide (Milk Of Magnesia) 30 ml PO HS PRN PRN Reason: Constipation Stop: 09/18/16 21:45 Risperidone (Risperdal) 1 mg PO Q12H [facility] PRN Reason: Protocol Stop: 09/18/16 21:59 Last Admin: 07/23/16 09:15 Dose: 1 mg Simvastatin (Zocor) 20 mg PO HS [facility] PRN Reason: Protocol Stop: 09/19/16 20:59 Last Admin: 07/22/16 20:57 Dose: 20 mg Trazodone HCl (Desyrel) 100 mg PO HS [facility] PRN Reason: Protocol Stop: 09/19/16 20:59 Last Admin: 07/22/16 20:57 Dose: 100 mg Zolpidem Tartrate (Ambien) 5 mg PO HS PRN PRN Reason: Insomnia Stop: 09/18/16 21:42 General: demented HEENT: NC/AT, PERRLA Neck: Supple, No JVD Lungs: CTAB Cardiovascular: RRR, Normal S1, Normal S2 Abdomen: globular, positive bowel sound Extremities: excoriation Neurological: no change - Procedures Procedures: Procedures Procedure Code Date GROUP PSYCHOTHERAPY 69829 06/08/15 GROUP PSYCHOTHERAPY GZHZZZZ 06/08/15 Internal Medicine Assmt/Plan - Assessment Assessment: HYPONATREMIA ALOC AGITATION - Plan Plan: correct lytes fall precaution nutritional support dameon strauss
--- NOTE | 2016-07-23 23:28 | Progress Notes ---
SUBJECTIVE: The patient is seen, chart is reviewed, discussed with staff. The patient remains symptomatic, confused, delusional, talking about Devin Rodríguez, President,____ Obama claiming that he will leave this hospital and goes to [facility]. He states that he lives in [facility], does not know that he was in [facility]. The patient is still disoriented, agitated at times, aggressive, irritable. Staff is needing to redirect the patient. Currently, on higher doses of medication, psychotropics, tolerating at current dose. There seems to be some improvement, he seems to be somewhat more amenable to interview. Sleeping fairly well, eating with prompting, ADLs with prompting. ASSESSMENT: The patient remains symptomatic, delusional, disorganized, confused. PLAN: Continue to monitor and titrate medications as tolerated. The patient is not safe for a lower level of care at this time. JOB# [id number] MTDD
--- NOTE | 2016-07-24 15:13 | Internal Medicine Prog Note ---
Internal Medicine Subjective - Subjective Patient seen and examined:: with staff, chart reviewed Patient is:: awake, verbal, interactive Per staff patient is:: no adverse event, eating well, agitated, confused Internal Medicine Objective - Results Result Diagrams: 07/22/16 06:56 Recent Labs: Laboratory Last Values Sodium 134 mEq/L (136-145) L 07/22/16 06:56 Potassium 4.1 mEq/L (3.5-5.1) 07/22/16 06:56 Chloride 106 mEq/L (98-107) 07/22/16 06:56 Carbon Dioxide 23.0 mEq/L (21.0-31.0) 07/22/16 06:56 Anion Gap 9.1 (7.0-16.0) 07/22/16 06:56 BUN 20 mg/dL (7-25) 07/22/16 06:56 Creatinine 1.0 mg/dL (0.7-1.3) 07/22/16 06:56 Est GFR ( Amer) > 60.0 ml/min (>90) 07/22/16 06:56 Est GFR (Non-Af Amer) > 60.0 ml/min 07/22/16 06:56 BUN/Creatinine Ratio 20.0 07/22/16 06:56 Glucose 105 mg/dL (70-105) 07/22/16 06:56 Calcium 10.5 mg/dL (8.6-10.3) H 07/22/16 06:56 - Physical Exam Vitals and I&O: Vital Signs Temp 97.9 F 07/24/16 06:22 Pulse 70 07/24/16 09:23 Resp 18 07/24/16 07:33 BP 134/88 07/24/16 09:23 Pulse Ox 98 07/24/16 07:33 Intake & Output 07/23/16 07/24/16 07/24/16 18:59 06:59 18:59 Intake Total 600 0 Balance 600 0 Intake: Oral 600 0 Other: # Voids 2 4 # Bowel Movements 1 0 Active Medications: Current Medications Acetaminophen (Tylenol) 650 mg PO Q4HR PRN PRN Reason: PAIN OF FEVER >100.5 Stop: 09/18/16 21:45 Al Hydrox/Mg Hydrox/Simethicone (Maalox) 30 ml PO Q6HR PRN PRN Reason: GI DISTRESS Stop: 09/18/16 21:45 Amlodipine Besylate (Norvasc) 5 mg PO DAILY [facility] Stop: 09/19/16 08:59 Last Admin: 07/24/16 09:23 Dose: 5 mg Cholecalciferol (Vitamin D3) 3,000 iu PO DAILY [facility] Stop: 09/19/16 08:59 Last Admin: 07/24/16 09:22 Dose: 3,000 iu Docusate Sodium (Colace) 100 mg PO DAILY [facility] Stop: 09/19/16 08:59 Last Admin: 07/24/16 09:22 Dose: 100 mg Lamotrigine (Lamictal) 100 mg PO BID [facility] PRN Reason: Protocol Stop: 09/19/16 08:59 Last Admin: 07/24/16 09:23 Dose: 100 mg Levetiracetam (Keppra) 500 mg PO DAILY [facility] Stop: 09/19/16 08:59 Last Admin: 07/24/16 09:22 Dose: 500 mg Levetiracetam (Keppra) 1,500 mg PO 1700 [facility] Stop: 09/19/16 16:59 Last Admin: 07/23/16 17:27 Dose: 1,500 mg Lorazepam (Ativan) 0.5 mg PO Q4HR PRN; Protocol PRN Reason: Anxiety Stop: 08/19/16 21:42 Last Admin: 07/21/16 15:45 Dose: 0.5 mg Magnesium Hydroxide (Milk Of Magnesia) 30 ml PO HS PRN PRN Reason: Constipation Stop: 09/18/16 21:45 Risperidone (Risperdal) 1 mg PO Q12H [facility] PRN Reason: Protocol Stop: 09/18/16 21:59 Last Admin: 07/24/16 09:22 Dose: 1 mg Simvastatin (Zocor) 20 mg PO HS [facility] PRN Reason: Protocol Stop: 09/19/16 20:59 Last Admin: 07/23/16 20:17 Dose: 20 mg Trazodone HCl (Desyrel) 100 mg PO HS [facility] PRN Reason: Protocol Stop: 09/19/16 20:59 Last Admin: 07/23/16 20:17 Dose: 100 mg Zolpidem Tartrate (Ambien) 5 mg PO HS PRN PRN Reason: Insomnia Stop: 09/18/16 21:42 General: demented HEENT: NC/AT, PERRLA Neck: Supple, No JVD Lungs: CTAB Cardiovascular: RRR, Normal S1, Normal S2 Abdomen: soft non-tender, globular, positive bowel sound Extremities: excoriation Neurological: no change - Procedures Procedures: Procedures Procedure Code Date GROUP PSYCHOTHERAPY 06561 06/08/15 GROUP PSYCHOTHERAPY GZHZZZZ 06/08/15 Internal Medicine Assmt/Plan - Assessment Assessment: HYPONATREMIA ALOC AGITATION hypercalcemia - Plan Plan: correct lytes fall precaution nutritional support dameon rn
--- NOTE | 2016-07-25 04:34 | Progress Notes ---
SUBJECTIVE: The patient seen, chart reviewed, discussed with staff. The patient still believes in things not true; still delusional, confused, disoriented, seems a little bit calmer today, more amenable to placement, more amenable to treatment, taking his medications seems to be following rules and directions, but states that he wants to go from here to somewhere unrealistic, but he does not have any contacts there or placement there. ASSESSMENT: The patient remains gravely disabled. There are continued concerns about his ability to function at a lower level of care. We will continue to adjust his medications. 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 and if he is amenable to trying back to [facility] as well. JOB# [id number] MTDD
--- NOTE | 2016-07-25 15:00 | Internal Medicine Prog Note ---
Internal Medicine Subjective - Subjective Patient seen and examined:: with staff, chart reviewed Patient is:: awake, interactive Per staff patient is:: no episodes of fall, confused Internal Medicine Objective - Results Result Diagrams: 07/22/16 06:56 Recent Labs: Laboratory Last Values Sodium 134 mEq/L (136-145) L 07/22/16 06:56 Potassium 4.1 mEq/L (3.5-5.1) 07/22/16 06:56 Chloride 106 mEq/L (98-107) 07/22/16 06:56 Carbon Dioxide 23.0 mEq/L (21.0-31.0) 07/22/16 06:56 Anion Gap 9.1 (7.0-16.0) 07/22/16 06:56 BUN 20 mg/dL (7-25) 07/22/16 06:56 Creatinine 1.0 mg/dL (0.7-1.3) 07/22/16 06:56 Est GFR ( Amer) > 60.0 ml/min (>90) 07/22/16 06:56 Est GFR (Non-Af Amer) > 60.0 ml/min 07/22/16 06:56 BUN/Creatinine Ratio 20.0 07/22/16 06:56 Glucose 105 mg/dL (70-105) 07/22/16 06:56 Calcium 10.5 mg/dL (8.6-10.3) H 07/22/16 06:56 - Physical Exam Vitals and I&O: Vital Signs Temp 97.6 F 07/25/16 14:47 Pulse 74 07/25/16 14:47 Resp 21 07/25/16 14:47 BP 144/83 07/25/16 14:47 Pulse Ox 98 07/25/16 14:47 Intake & Output 07/24/16 07/25/16 07/25/16 18:59 06:59 18:59 Intake Total 1400 120 Balance 1400 120 Weight (lbs) 97.069 kg Intake: Oral 1400 120 Other: # Voids 6 3 # Bowel Movements 1 Active Medications: Current Medications Acetaminophen (Tylenol) 650 mg PO Q4HR PRN PRN Reason: PAIN OF FEVER >100.5 Stop: 09/18/16 21:45 Al Hydrox/Mg Hydrox/Simethicone (Maalox) 30 ml PO Q6HR PRN PRN Reason: GI DISTRESS Stop: 09/18/16 21:45 Amlodipine Besylate (Norvasc) 5 mg PO DAILY SANDI Stop: 09/19/16 08:59 Last Admin: 07/25/16 10:19 Dose: 5 mg Cholecalciferol (Vitamin D3) 3,000 iu PO DAILY [facility]ANDI Stop: 09/19/16 08:59 Last Admin: 07/25/16 10:18 Dose: 3,000 iu Docusate Sodium (Colace) 100 mg PO DAILY [facility]ANDI Stop: 09/19/16 08:59 Last Admin: 07/25/16 10:19 Dose: 100 mg Lamotrigine (Lamictal) 100 mg PO BID SANDI PRN Reason: Protocol Stop: 09/19/16 08:59 Last Admin: 07/25/16 10:18 Dose: 100 mg Levetiracetam (Keppra) 500 mg PO DAILY [facility]ANDI Stop: 09/19/16 08:59 Last Admin: 07/25/16 10:18 Dose: 500 mg Levetiracetam (Keppra) 1,500 mg PO 1700 [facility] Stop: 09/19/16 16:59 Last Admin: 07/24/16 17:29 Dose: 1,500 mg Lorazepam (Ativan) 0.5 mg PO Q4HR PRN; Protocol PRN Reason: Anxiety Stop: 08/19/16 21:42 Last Admin: 07/21/16 15:45 Dose: 0.5 mg Magnesium Hydroxide (Milk Of Magnesia) 30 ml PO HS PRN PRN Reason: Constipation Stop: 09/18/16 21:45 Risperidone (Risperdal) 1.5 mg PO Q12H SANDI PRN Reason: Protocol Stop: 09/22/16 20:59 Last Admin: 07/25/16 10:19 Dose: 1.5 mg Simvastatin (Zocor) 20 mg PO HS SANDI PRN Reason: Protocol Stop: 09/19/16 20:59 Last Admin: 07/24/16 20:25 Dose: 20 mg Trazodone HCl (Desyrel) 100 mg PO HS SANDI PRN Reason: Protocol Stop: 09/19/16 20:59 Last Admin: 07/24/16 20:25 Dose: 100 mg Zolpidem Tartrate (Ambien) 5 mg PO HS PRN PRN Reason: Insomnia Stop: 09/18/16 21:42 General: demented HEENT: NC/AT, PERRLA Neck: Supple, No JVD Lungs: CTAB Cardiovascular: RRR, Normal S1, Normal S2 Abdomen: soft non-tender, globular Extremities: excoriation Neurological: disorganized - Procedures Procedures: Procedures Procedure Code Date GROUP PSYCHOTHERAPY 67989 06/08/15 GROUP PSYCHOTHERAPY GZHZZZZ 06/08/15 Internal Medicine Assmt/Plan - Assessment Assessment: HYPONATREMIA ALOC AGITATION hypercalcemia - Plan Plan: correct lytes fall precaution nutritional support dameon rn Nutritional Asmnt/Malnutr-PDOC - Dietary Evaluation Malnutrition Findings (Please click <Entered> for more info): Nutritional Asmnt/Malnutrition Start: 07/24/16 16: 20 Text: Status: Complete Freq: Document 07/24/16 16:20 GSUN (Rec: 07/24/16 16:36 GSUN [email or web address]) Nutritional Asmnt/Malnutrition Patient General Information Nutritional Screening Diagnosis Diagnosis Paranoid schizophrenia Pertinent Medical Hx/Surgical Hx Hyperlipidemia, hx traumatic brain injury, HTN, anemia, epilepsy, vitamin D defieicny, shizophrenia, hx extensive psychiatric hospitalizations Subjective Information 60 year old male. Pt was pleasant, talkative, very questionable historian as pt kept going off topic and some responses did not make logical sense, such as pt [place] [employer] and his ex- alcoholic roommate gave him millions of money. 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 Avg PO itnake 75-100 % of meals, meeting nutritional needs. Pt stated good appetite, food at [facility] is fair/acceptable. Current Diet Order/ Nutrition Support regular Pertinent Medications Maalox, Vitamin D3, colace, MOM Pertinent Labs Reviewed. Nutritional Hx/Data Height 1.8 m Height (Calculated Centimeters) 180.3 Current Weight (lbs) 97.069 kg Weight (Calculated Kilograms) 97.1 Weight (Calculated Grams) 84468.8 [place] Body Weight 172lb Weight Status Overweight GI Symptoms Food Allergies Yes Cultural/Ethnic/Hindu Belief Noted allergies to peach, pt denied, however pt is a questionable historian. Usual diet at home [place] steak, sausage, romina side up eggs Skin Integrity/Comment: [place] 20. Skin intact. Current %PO Good (75-100%) Estimated Nutritional Goals Calories/Kcals/Kg IBW 172lb/78kg Kcals Calculated 1950-2340kcal (25-30kcal/kg) Protein Calculated 78g (1g/kg) Fluid: ml 1950-2340ml (1ml/kcal) Nutritional Problem 1. Problem Problem No nutritional problems at this time. Intervention/Recommendation Comments 1. Continue with regular diet. Avg PO intake is adequate. Expected Outcomes/Goals Expected Outcomes/Goals 1. PO intake continue to meet at least 75% of estimated nutritional needs.
--- NOTE | 2016-07-25 23:54 | Progress Notes ---
SUBJECTIVE: The patient is seen, chart reviewed, discussed with staff. The patient remains disoriented, delusional, talking about Obama____, talking about president, Marcos, believing he is going to go back to [facility]. His plan is to go back to [facility], he remains gravely disabled, still requiring a lot of redirection, confused, difficulty following in rules and directions. He was on a positive _note___ taking his medications, no side effects, no EPS. ASSESSMENT: The patient remains symptomatic, disoriented, still psychotic, delusional. PLAN: Continue to titrate medications, monitor closely, given the severity of the patient's current behaviors, is not safe for discharge. [facility]# [id number] CHANTEL
--- NOTE | 2016-07-26 21:27 | Internal Medicine Prog Note ---
Internal Medicine Subjective - Subjective Patient seen and examined:: with staff, chart reviewed Patient is:: awake, verbal, interactive Per staff patient is:: no adverse event, noncompliant Internal Medicine Objective - Results Result Diagrams: 07/22/16 06:56 Recent Labs: Laboratory Last Values Sodium 134 mEq/L (136-145) L 07/22/16 06:56 Potassium 4.1 mEq/L (3.5-5.1) 07/22/16 06:56 Chloride 106 mEq/L (98-107) 07/22/16 06:56 Carbon Dioxide 23.0 mEq/L (21.0-31.0) 07/22/16 06:56 Anion Gap 9.1 (7.0-16.0) 07/22/16 06:56 BUN 20 mg/dL (7-25) 07/22/16 06:56 Creatinine 1.0 mg/dL (0.7-1.3) 07/22/16 06:56 Est GFR ( Amer) > 60.0 ml/min (>90) 07/22/16 06:56 Est GFR (Non-Af Amer) > 60.0 ml/min 07/22/16 06:56 BUN/Creatinine Ratio 20.0 07/22/16 06:56 Glucose 105 mg/dL (70-105) 07/22/16 06:56 Calcium 10.5 mg/dL (8.6-10.3) H 07/22/16 06:56 - Physical Exam Vitals and I&O: Vital Signs Temp 97.8 F 07/26/16 18:19 Pulse 82 07/26/16 19:24 Resp 18 07/26/16 19:24 BP 137/91 07/26/16 18:19 Pulse Ox 96 07/26/16 18:41 Intake & Output 07/26/16 07/26/16 07/27/16 06:59 18:59 06:59 Intake Total 1000 Balance 1000 Intake: Oral 1000 Other: # Voids 2 2 # Bowel Movements 1 Active Medications: Current Medications Acetaminophen (Tylenol) 650 mg PO Q4HR PRN PRN Reason: PAIN OF FEVER >100.5 Stop: 09/18/16 21:45 Al Hydrox/Mg Hydrox/Simethicone (Maalox) 30 ml PO Q6HR PRN PRN Reason: GI DISTRESS Stop: 09/18/16 21:45 Amlodipine Besylate (Norvasc) 5 mg PO DAILY [facility] Stop: 09/19/16 08:59 Last Admin: 07/26/16 08:14 Dose: 5 mg Cholecalciferol (Vitamin D3) 3,000 iu PO DAILY [facility]ANDI Stop: 09/19/16 08:59 Last Admin: 07/26/16 08:14 Dose: 3,000 iu Docusate Sodium (Colace) 100 mg PO DAILY SANDI Stop: 09/19/16 08:59 Last Admin: 07/26/16 08:15 Dose: 100 mg Lamotrigine (Lamictal) 100 mg PO BID SANDI PRN Reason: Protocol Stop: 09/19/16 08:59 Last Admin: 07/26/16 16:57 Dose: 100 mg Levetiracetam (Keppra) 500 mg PO DAILY [facility] Stop: 09/19/16 08:59 Last Admin: 07/26/16 08:16 Dose: 500 mg Levetiracetam (Keppra) 1,500 mg PO 1700 [facility] Stop: 09/19/16 16:59 Last Admin: 07/26/16 16:58 Dose: 1,500 mg Lorazepam (Ativan) 0.5 mg PO Q4HR PRN; Protocol PRN Reason: Anxiety Stop: 08/19/16 21:42 Last Admin: 07/21/16 15:45 Dose: 0.5 mg Magnesium Hydroxide (Milk Of Magnesia) 30 ml PO HS PRN PRN Reason: Constipation Stop: 09/18/16 21:45 Risperidone (Risperdal) 2 mg PO Q12H SANDI PRN Reason: Protocol Stop: 09/24/16 16:25 Last Admin: 07/26/16 16:56 Dose: 2 mg Simvastatin (Zocor) 20 mg PO HS SANDI PRN Reason: Protocol Stop: 09/19/16 20:59 Last Admin: 07/26/16 20:46 Dose: 20 mg Trazodone HCl (Desyrel) 100 mg PO HS SANDI PRN Reason: Protocol Stop: 09/19/16 20:59 Last Admin: 07/26/16 20:47 Dose: 100 mg Zolpidem Tartrate (Ambien) 5 mg PO HS PRN PRN Reason: Insomnia Stop: 09/18/16 21:42 HEENT: NC/AT, PERRLA Neck: Supple, No JVD Lungs: CTAB Cardiovascular: RRR, Normal S1 Abdomen: soft non-tender, globular, positive bowel sound Extremities: excoriation Neurological: no change - Procedures Procedures: Procedures Procedure Code Date GROUP PSYCHOTHERAPY 21119 06/08/15 GROUP PSYCHOTHERAPY GZHZZZZ 06/08/15 Internal Medicine Assmt/Plan - Assessment Assessment: HYPONATREMIA ALOC AGITATION hypercalcemia - Plan Plan: correct lytes fall precaution nutritional support dameon rn Nutritional Asmnt/Malnutr-PDOC - Dietary Evaluation Malnutrition Findings (Please click <Entered> for more info): Nutritional Asmnt/Malnutrition Start: 07/24/16 16: 20 Text: Status: Complete Freq: Document 07/24/16 16:20 GSUN (Rec: 07/24/16 16:36 GSUN [email or web address]) Nutritional Asmnt/Malnutrition Patient General Information Nutritional Screening Diagnosis Diagnosis Paranoid schizophrenia Pertinent Medical Hx/Surgical Hx Hyperlipidemia, hx traumatic brain injury, HTN, anemia, epilepsy, vitamin D defieicny, shizophrenia, hx extensive psychiatric hospitalizations Subjective Information 60 year old male. Pt was pleasant, talkative, very questionable historian as pt kept going off topic and some responses did not make logical sense, such as pt is flying home tonight and his ex- alcoholic roommate gave him millions of money. 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 Avg PO itnake 75-100 % of meals, meeting nutritional needs. Pt stated good appetite, food at [facility] is fair/acceptable. Current Diet Order/ Nutrition Support regular Pertinent Medications Maalox, Vitamin D3, colace, MOM Pertinent Labs Reviewed. Nutritional Hx/Data Height 1.8 m Height (Calculated Centimeters) 180.3 Current Weight (lbs) 97.069 kg Weight (Calculated Kilograms) 97.1 Weight (Calculated Grams) 51120.8 [place] Body Weight 172lb Weight Status Overweight GI Symptoms Food Allergies Yes Cultural/Ethnic/Zoroastrianism Belief Noted allergies to peach, pt denied, however pt is a questionable historian. Usual diet at home [place] steak, sausage, romina side up eggs Skin Integrity/Comment: [place] 20. Skin intact. Current %PO Good (75-100%) Estimated Nutritional Goals Calories/Kcals/Kg IBW 172lb/78kg Kcals Calculated 1950-2340kcal (25-30kcal/kg) Protein Calculated 78g (1g/kg) Fluid: ml 1950-2340ml (1ml/kcal) Nutritional Problem 1. Problem Problem No nutritional problems at this time. Intervention/Recommendation Comments 1. Continue with regular diet. Avg PO intake is adequate. Expected Outcomes/Goals Expected Outcomes/Goals 1. PO intake continue to meet at least 75% of estimated nutritional needs.
--- NOTE | 2016-07-27 06:46 | Progress Notes ---
SUBJECTIVE: The patient is seen, chart is reviewed, discussed with staff. The patient still remains delusional, symptomatic, upset. States he is going to go straight to [place]____, disoriented. He is noted to be sleeping well, eating well, poor attention to ADLs, staff notes he does keep__becoming__ agitated at times, upset, requiring redirection. ___On a_Positive that he is taking his medications. No EPS. No side effects. ASSESSMENT: The patient remains delusional, disoriented, psychotic, still gets agitated, poor impulse control. PLAN: Increase Risperdal today. Monitor closely for side effects. The patient is not safe for a lower level of care. JOB# [id number] MTDD
--- NOTE | 2016-07-27 15:41 | Internal Medicine Prog Note ---
Internal Medicine Subjective - Subjective Patient seen and examined:: with staff, chart reviewed Patient is:: verbal, interactive Per staff patient is:: no adverse event, noncompliant Internal Medicine Objective - Results Result Diagrams: 07/22/16 06:56 Recent Labs: Laboratory Last Values Sodium 134 mEq/L (136-145) L 07/22/16 06:56 Potassium 4.1 mEq/L (3.5-5.1) 07/22/16 06:56 Chloride 106 mEq/L (98-107) 07/22/16 06:56 Carbon Dioxide 23.0 mEq/L (21.0-31.0) 07/22/16 06:56 Anion Gap 9.1 (7.0-16.0) 07/22/16 06:56 BUN 20 mg/dL (7-25) 07/22/16 06:56 Creatinine 1.0 mg/dL (0.7-1.3) 07/22/16 06:56 Est GFR ( Amer) > 60.0 ml/min (>90) 07/22/16 06:56 Est GFR (Non-Af Amer) > 60.0 ml/min 07/22/16 06:56 BUN/Creatinine Ratio 20.0 07/22/16 06:56 Glucose 105 mg/dL (70-105) 07/22/16 06:56 Calcium 10.5 mg/dL (8.6-10.3) H 07/22/16 06:56 - Physical Exam Vitals and I&O: Vital Signs Temp 98.4 F 07/27/16 06:54 Pulse 76 07/27/16 09:50 Resp 18 07/27/16 08:00 BP 140/85 07/27/16 09:50 Pulse Ox 97 07/27/16 06:54 Intake & Output 07/26/16 07/27/16 07/27/16 18:59 06:59 18:59 Intake Total 1000 Balance 1000 Intake: Oral 1000 Other: # Voids 2 2 # Bowel Movements 1 Active Medications: Current Medications Acetaminophen (Tylenol) 650 mg PO Q4HR PRN PRN Reason: PAIN OF FEVER >100.5 Stop: 09/18/16 21:45 Al Hydrox/Mg Hydrox/Simethicone (Maalox) 30 ml PO Q6HR PRN PRN Reason: GI DISTRESS Stop: 09/18/16 21:45 Amlodipine Besylate (Norvasc) 5 mg PO DAILY [facility]I Stop: 09/19/16 08:59 Last Admin: 07/27/16 09:50 Dose: 5 mg Cholecalciferol (Vitamin D3) 3,000 iu PO DAILY [facility]I Stop: 09/19/16 08:59 Last Admin: 07/27/16 09:50 Dose: 3,000 iu Docusate Sodium (Colace) 100 mg PO DAILY [facility]ANDI Stop: 09/19/16 08:59 Last Admin: 07/27/16 09:50 Dose: 100 mg Lamotrigine (Lamictal) 100 mg PO BID SANDI PRN Reason: Protocol Stop: 09/19/16 08:59 Last Admin: 07/27/16 09:50 Dose: 100 mg Levetiracetam (Keppra) 500 mg PO DAILY [facility]I Stop: 09/19/16 08:59 Last Admin: 07/27/16 09:50 Dose: 500 mg Levetiracetam (Keppra) 1,500 mg PO 1700 [facility] Stop: 09/19/16 16:59 Last Admin: 07/26/16 16:58 Dose: 1,500 mg Lorazepam (Ativan) 0.5 mg PO Q4HR PRN; Protocol PRN Reason: Anxiety Stop: 08/19/16 21:42 Last Admin: 07/21/16 15:45 Dose: 0.5 mg Magnesium Hydroxide (Milk Of Magnesia) 30 ml PO HS PRN PRN Reason: Constipation Stop: 09/18/16 21:45 Risperidone (Risperdal) 2 mg PO Q12H SANDI PRN Reason: Protocol Stop: 09/24/16 16:25 Last Admin: 07/27/16 04:00 Dose: 2 mg Simvastatin (Zocor) 20 mg PO HS SANDI PRN Reason: Protocol Stop: 09/19/16 20:59 Last Admin: 07/26/16 20:46 Dose: 20 mg Trazodone HCl (Desyrel) 100 mg PO HS SANDI PRN Reason: Protocol Stop: 09/19/16 20:59 Last Admin: 07/26/16 20:47 Dose: 100 mg Zolpidem Tartrate (Ambien) 5 mg PO HS PRN PRN Reason: Insomnia Stop: 09/18/16 21:42 General: demented HEENT: NC/AT, PERRLA Neck: Supple, No JVD Lungs: CTAB Cardiovascular: RRR, Normal S1, Normal S2 Abdomen: soft non-tender, globular, positive bowel sound Extremities: excoriation Neurological: no change - Procedures Procedures: Procedures Procedure Code Date GROUP PSYCHOTHERAPY 13539 06/08/15 GROUP PSYCHOTHERAPY GZHZZZZ 06/08/15 Internal Medicine Assmt/Plan - Assessment Assessment: HYPONATREMIA ALOC AGITATION hypercalcemia - Plan Plan: correct lytes fall precaution nutritional support dameon rn Nutritional Asmnt/Malnutr-PDOC - Dietary Evaluation Malnutrition Findings (Please click <Entered> for more info): Nutritional Asmnt/Malnutrition Start: 07/24/16 16: 20 Text: Status: Complete Freq: Document 07/24/16 16:20 GSUN (Rec: 07/24/16 16:36 GSUN [email or web address]) Nutritional Asmnt/Malnutrition Patient General Information Nutritional Screening Diagnosis Diagnosis Paranoid schizophrenia Pertinent Medical Hx/Surgical Hx Hyperlipidemia, hx traumatic brain injury, HTN, anemia, epilepsy, vitamin D defieicny, shizophrenia, hx extensive psychiatric hospitalizations Subjective Information 60 year old male. Pt was pleasant, talkative, very questionable historian as pt kept going off topic and some responses did not make logical sense, such [place] and his ex- alcoholic roommate gave him millions of money. 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 Avg PO itnake 75-100 % of meals, meeting nutritional needs. Pt stated good appetite, food at [facility] is fair/acceptable. Current Diet Order/ Nutrition Support regular Pertinent Medications Maalox, Vitamin D3, colace, MOM Pertinent Labs Reviewed. Nutritional Hx/Data Height 1.8 m Height (Calculated Centimeters) 180.3 Current Weight (lbs) 97.069 kg Weight (Calculated Kilograms) 97.1 Weight (Calculated Grams) 04278.8 [place] Body Weight 172lb Weight Status Overweight GI Symptoms Food Allergies Yes Cultural/Ethnic/Orthodox Belief Noted allergies to peach, pt denied, however pt is a questionable historian. Usual diet at home [place] steak, sausage, romina side up eggs Skin Integrity/Comment: [place] 20. Skin intact. Current %PO Good (75-100%) Estimated Nutritional Goals Calories/Kcals/Kg IBW 172lb/78kg Kcals Calculated 1950-2340kcal (25-30kcal/kg) Protein Calculated 78g (1g/kg) Fluid: ml 1950-2340ml (1ml/kcal) Nutritional Problem 1. Problem Problem No nutritional problems at this time. Intervention/Recommendation Comments 1. Continue with regular diet. Avg PO intake is adequate. Expected Outcomes/Goals Expected Outcomes/Goals 1. PO intake continue to meet at least 75% of estimated nutritional needs.
--- NOTE | 2016-07-27 23:39 | Progress Notes ---
SUBJECTIVE: The patient is seen, chart reviewed, discussed with staff. The patient remains symptomatic, stating that he is going to go to [place], disoriented, delusional, still aggressive, agitated at times, gets upset, requiring redirections, no EPS, he is taking his medications, recent dose increase of medications, sleeping well, eating well. ASSESSMENT: The patient remains delusional, disoriented, psychotic, gravely disabled, still dangerous, gets aggressive. PLAN: Continue increased dose of Risperdal. Given the recent dose increase of medications, we will continue a current dose. JOB# [id number]
--- NOTE | 2016-07-28 21:46 | Internal Medicine Prog Note ---
Internal Medicine Subjective - Subjective Patient seen and examined:: with staff, chart reviewed Patient is:: awake, interactive Per staff patient is:: no adverse event Internal Medicine Objective - Results Result Diagrams: 07/22/16 06:56 Recent Labs: Laboratory Last Values Sodium 134 mEq/L (136-145) L 07/22/16 06:56 Potassium 4.1 mEq/L (3.5-5.1) 07/22/16 06:56 Chloride 106 mEq/L (98-107) 07/22/16 06:56 Carbon Dioxide 23.0 mEq/L (21.0-31.0) 07/22/16 06:56 Anion Gap 9.1 (7.0-16.0) 07/22/16 06:56 BUN 20 mg/dL (7-25) 07/22/16 06:56 Creatinine 1.0 mg/dL (0.7-1.3) 07/22/16 06:56 Est GFR ( Amer) > 60.0 ml/min (>90) 07/22/16 06:56 Est GFR (Non-Af Amer) > 60.0 ml/min 07/22/16 06:56 BUN/Creatinine Ratio 20.0 07/22/16 06:56 Glucose 105 mg/dL (70-105) 07/22/16 06:56 Calcium 10.5 mg/dL (8.6-10.3) H 07/22/16 06:56 - Physical Exam Vitals and I&O: Vital Signs Temp 97 F 07/28/16 17:34 Pulse 67 07/28/16 19:10 Resp 18 07/28/16 20:00 BP 153/97 07/28/16 17:34 Pulse Ox 96 07/28/16 19:10 Intake & Output 07/28/16 07/28/16 07/29/16 06:59 18:59 06:59 Intake Total 1000 Balance 1000 Intake: Oral 1000 Other: # Voids 2 3 # Bowel Movements 1 Stool Characteristics Formed Active Medications: Current Medications Acetaminophen (Tylenol) 650 mg PO Q4HR PRN PRN Reason: PAIN OF FEVER >100.5 Stop: 09/18/16 21:45 Al Hydrox/Mg Hydrox/Simethicone (Maalox) 30 ml PO Q6HR PRN PRN Reason: GI DISTRESS Stop: 09/18/16 21:45 Amlodipine Besylate (Norvasc) 5 mg PO DAILY [facility] Stop: 09/19/16 08:59 Last Admin: 07/28/16 10:02 Dose: 5 mg Cholecalciferol (Vitamin D3) 3,000 iu PO DAILY [facility] Stop: 09/19/16 08:59 Last Admin: 07/28/16 10:04 Dose: 3,000 iu Docusate Sodium (Colace) 100 mg PO DAILY [facility] Stop: 09/19/16 08:59 Last Admin: 07/28/16 10:03 Dose: 100 mg Lamotrigine (Lamictal) 100 mg PO BID [facility] PRN Reason: Protocol Stop: 09/19/16 08:59 Last Admin: 07/28/16 16:59 Dose: 100 mg Levetiracetam (Keppra) 500 mg PO DAILY [facility] Stop: 09/19/16 08:59 Last Admin: 07/28/16 10:04 Dose: 500 mg Levetiracetam (Keppra) 1,500 mg PO 1700 [facility] Stop: 09/19/16 16:59 Last Admin: 07/28/16 17:00 Dose: 1,500 mg Lorazepam (Ativan) 0.5 mg PO Q4HR PRN; Protocol PRN Reason: Anxiety Stop: 08/19/16 21:42 Last Admin: 07/21/16 15:45 Dose: 0.5 mg Magnesium Hydroxide (Milk Of Magnesia) 30 ml PO HS PRN PRN Reason: Constipation Stop: 09/18/16 21:45 Risperidone (Risperdal) 2 mg PO Q12H [facility] PRN Reason: Protocol Stop: 09/26/16 08:59 Last Admin: 07/28/16 20:27 Dose: 2 mg Simvastatin (Zocor) 20 mg PO HS [facility] PRN Reason: Protocol Stop: 09/19/16 20:59 Last Admin: 07/28/16 20:27 Dose: 20 mg Trazodone HCl (Desyrel) 100 mg PO HS [facility] PRN Reason: Protocol Stop: 09/19/16 20:59 Last Admin: 07/28/16 20:27 Dose: 100 mg Zolpidem Tartrate (Ambien) 5 mg PO HS PRN PRN Reason: Insomnia Stop: 09/18/16 21:42 General: demented HEENT: NC/AT, PERRLA Neck: Supple, No JVD Lungs: CTAB Cardiovascular: RRR, Normal S1 Abdomen: soft non-tender, globular, positive bowel sound Extremities: excoriation Neurological: no change - Procedures Procedures: Procedures Procedure Code Date GROUP PSYCHOTHERAPY 14537 06/08/15 GROUP PSYCHOTHERAPY GZHZZZZ 06/08/15 Internal Medicine Assmt/Plan - Assessment Assessment: HYPONATREMIA ALOC AGITATION hypercalcemia - Plan Plan: correct lytes fall precaution nutritional support dameon rn Nutritional Asmnt/Malnutr-PDOC - Dietary Evaluation Malnutrition Findings (Please click <Entered> for more info): Nutritional Asmnt/Malnutrition Start: 07/24/16 16: 20 Text: Status: Complete Freq: Document 07/24/16 16:20 GSUN (Rec: 07/24/16 16:36 GSUN [email or web address]) Nutritional Asmnt/Malnutrition Patient General Information Nutritional Screening Diagnosis Diagnosis Paranoid schizophrenia Pertinent Medical Hx/Surgical Hx Hyperlipidemia, hx traumatic brain injury, HTN, anemia, epilepsy, vitamin D defieicny, shizophrenia, hx extensive psychiatric hospitalizations Subjective Information 60 year old male. Pt was pleasant, talkative, very questionable historian as pt kept going off topic and some responses did not make logical sense, such as [place] [employer] and his ex- alcoholic roommate gave him millions of money. 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 Avg PO itnake 75-100 % of meals, meeting nutritional needs. Pt stated good appetite, food at [facility] is fair/acceptable. Current Diet Order/ Nutrition Support regular Pertinent Medications Maalox, Vitamin D3, colace, MOM Pertinent Labs Reviewed. Nutritional Hx/Data Height 1.8 m Height (Calculated Centimeters) 180.3 Current Weight (lbs) 97.069 kg Weight (Calculated Kilograms) 97.1 Weight (Calculated Grams) 89423.8 [place] Body Weight 172lb Weight Status Overweight GI Symptoms Food Allergies Yes Cultural/Ethnic/Faith Belief Noted allergies to peach, pt denied, however pt is a questionable historian. Usual diet at home [place] steak, sausage, [place] side up eggs Skin Integrity/Comment: [place] 20. Skin intact. Current %PO Good (75-100%) Estimated Nutritional Goals Calories/Kcals/Kg IBW 172lb/78kg Kcals Calculated 1950-2340kcal (25-30kcal/kg) Protein Calculated 78g (1g/kg) Fluid: ml 1950-2340ml (1ml/kcal) Nutritional Problem 1. Problem Problem No nutritional problems at this time. Intervention/Recommendation Comments 1. Continue with regular diet. Avg PO intake is adequate. Expected Outcomes/Goals Expected Outcomes/Goals 1. PO intake continue to meet at least 75% of estimated nutritional needs.
--- NOTE | 2016-07-28 22:52 | Progress Notes ---
SUBJECTIVE: The patient was seen, chart reviewed, and discussed with staff. The patient remains symptomatic, delusional, and grandiose, believes he is very wealthy and has houses in [place], fixated on going back to [place], disoriented, agitated at times, gets upset, and labile. On a positive note, he is taking his medications. No EPS. No side effects. Sleeping is fairly well and eating with prompting. ASSESSMENT: The patient remains delusional, disoriented, psychotic, gravely disabled, and grandiose. He also gets aggressive at times. PLAN: Continue increased dose of Risperdal. Monitor closely for any overt side effects. Given the severity of the patient's psychotic state, he is not safe for a lower level of care at this time. JOB# [id number]
--- NOTE | 2016-07-29 20:19 | Internal Medicine Prog Note ---
Internal Medicine Subjective - Subjective Patient seen and examined:: with staff, chart reviewed Patient is:: awake, verbal, interactive Per staff patient is:: no adverse event, no episodes of fall Internal Medicine Objective - Results Result Diagrams: 07/22/16 06:56 Recent Labs: Laboratory Last Values Sodium 134 mEq/L (136-145) L 07/22/16 06:56 Potassium 4.1 mEq/L (3.5-5.1) 07/22/16 06:56 Chloride 106 mEq/L (98-107) 07/22/16 06:56 Carbon Dioxide 23.0 mEq/L (21.0-31.0) 07/22/16 06:56 Anion Gap 9.1 (7.0-16.0) 07/22/16 06:56 BUN 20 mg/dL (7-25) 07/22/16 06:56 Creatinine 1.0 mg/dL (0.7-1.3) 07/22/16 06:56 Est GFR ( Amer) > 60.0 ml/min (>90) 07/22/16 06:56 Est GFR (Non-Af Amer) > 60.0 ml/min 07/22/16 06:56 BUN/Creatinine Ratio 20.0 07/22/16 06:56 Glucose 105 mg/dL (70-105) 07/22/16 06:56 Calcium 10.5 mg/dL (8.6-10.3) H 07/22/16 06:56 - Physical Exam Vitals and I&O: Vital Signs Temp 98.3 F 07/29/16 20:07 Pulse 66 07/29/16 20:07 Resp 19 07/29/16 20:07 BP 157/104 07/29/16 20:07 Pulse Ox 96 07/29/16 20:07 Intake & Output 07/29/16 07/29/16 07/30/16 06:59 18:59 06:59 Intake Total 120 1000 120 Balance 120 1000 120 Intake: Oral 120 1000 120 Other: # Voids 3 3 4 # Bowel Movements 1 0 Active Medications: Current Medications Acetaminophen (Tylenol) 650 mg PO Q4HR PRN PRN Reason: PAIN OF FEVER >100.5 Stop: 09/18/16 21:45 Al Hydrox/Mg Hydrox/Simethicone (Maalox) 30 ml PO Q6HR PRN PRN Reason: GI DISTRESS Stop: 09/18/16 21:45 Amlodipine Besylate (Norvasc) 5 mg PO DAILY [facility] Stop: 09/19/16 08:59 Last Admin: 07/29/16 08:15 Dose: 5 mg Cholecalciferol (Vitamin D3) 3,000 iu PO DAILY [facility] Stop: 09/19/16 08:59 Last Admin: 07/29/16 08:15 Dose: 3,000 iu Docusate Sodium (Colace) 100 mg PO DAILY [facility] Stop: 09/19/16 08:59 Last Admin: 07/29/16 08:15 Dose: 100 mg Lamotrigine (Lamictal) 100 mg PO BID [facility] PRN Reason: Protocol Stop: 09/19/16 08:59 Last Admin: 07/29/16 16:17 Dose: 100 mg Levetiracetam (Keppra) 500 mg PO DAILY [facility] Stop: 09/19/16 08:59 Last Admin: 07/29/16 08:16 Dose: 500 mg Levetiracetam (Keppra) 1,500 mg PO 1700 [facility] Stop: 09/19/16 16:59 Last Admin: 07/29/16 16:17 Dose: 1,500 mg Lorazepam (Ativan) 0.5 mg PO Q4HR PRN; Protocol PRN Reason: Anxiety Stop: 08/19/16 21:42 Last Admin: 07/21/16 15:45 Dose: 0.5 mg Magnesium Hydroxide (Milk Of Magnesia) 30 ml PO HS PRN PRN Reason: Constipation Stop: 09/18/16 21:45 Risperidone (Risperdal) 2 mg PO Q12H [facility] PRN Reason: Protocol Stop: 09/26/16 08:59 Last Admin: 07/29/16 20:14 Dose: 2 mg Simvastatin (Zocor) 20 mg PO HS [facility] PRN Reason: Protocol Stop: 09/19/16 20:59 Last Admin: 07/29/16 20:14 Dose: 20 mg Trazodone HCl (Desyrel) 100 mg PO HS [facility] PRN Reason: Protocol Stop: 09/19/16 20:59 Last Admin: 07/29/16 20:14 Dose: 100 mg Zolpidem Tartrate (Ambien) 5 mg PO HS PRN PRN Reason: Insomnia Stop: 09/18/16 21:42 General: demented HEENT: NC/AT, PERRLA Neck: Supple, No JVD Lungs: CTAB Cardiovascular: RRR, Normal S1, Normal S2 Abdomen: soft non-tender, globular, positive bowel sound Extremities: excoriation Neurological: no change - Procedures Procedures: Procedures Procedure Code Date GROUP PSYCHOTHERAPY 27657 06/08/15 GROUP PSYCHOTHERAPY GZHZZZZ 06/08/15 Internal Medicine Assmt/Plan - Assessment Assessment: HYPONATREMIA ALOC AGITATION hypercalcemia - Plan Plan: correct lytes fall precaution nutritional support dameon rn Nutritional Asmnt/Malnutr-PDOC - Dietary Evaluation Malnutrition Findings (Please click <Entered> for more info): Nutritional Asmnt/Malnutrition Start: 07/24/16 16: 20 Text: Status: Complete Freq: Document 07/24/16 16:20 GSUN (Rec: 07/24/16 16:36 GSUN [email or web address]) Nutritional Asmnt/Malnutrition Patient General Information Nutritional Screening Diagnosis Diagnosis Paranoid schizophrenia Pertinent Medical Hx/Surgical Hx Hyperlipidemia, hx traumatic brain injury, HTN, anemia, epilepsy, vitamin D defieicny, shizophrenia, hx extensive psychiatric hospitalizations Subjective Information 60 year old male. Pt was pleasant, talkative, very questionable historian as pt kept going off topic and some responses did not make logical sense, such as pt is flying home tonight and his ex- alcoholic roommate gave him millions of money. 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 Avg PO itnake 75-100 % of meals, meeting nutritional needs. Pt stated good appetite, food at [facility] is fair/acceptable. Current Diet Order/ Nutrition Support regular Pertinent Medications Maalox, Vitamin D3, colace, MOM Pertinent Labs Reviewed. Nutritional Hx/Data Height 1.8 m Height (Calculated Centimeters) 180.3 Current Weight (lbs) 97.069 kg Weight (Calculated Kilograms) 97.1 Weight (Calculated Grams) 52945.8 [place] Body Weight 172lb Weight Status Overweight GI Symptoms Food Allergies Yes Cultural/Ethnic/Islam Belief Noted allergies to peach, pt denied, however pt is a questionable historian. Usual diet at home [place] steak, sausage, [place] side up eggs Skin Integrity/Comment: [place] 20. Skin intact. Current %PO Good (75-100%) Estimated Nutritional Goals Calories/Kcals/Kg IBW 172lb/78kg Kcals Calculated 1950-2340kcal (25-30kcal/kg) Protein Calculated 78g (1g/kg) Fluid: ml 1950-2340ml (1ml/kcal) Nutritional Problem 1. Problem Problem No nutritional problems at this time. Intervention/Recommendation Comments 1. Continue with regular diet. Avg PO intake is adequate. Expected Outcomes/Goals Expected Outcomes/Goals 1. PO intake continue to meet at least 75% of estimated nutritional needs.
--- NOTE | 2016-07-29 23:51 | Progress Notes ---
SUBJECTIVE: The patient seen, chart reviewed, discussed with staff. The patient remains agitated, delusional, grandiose, believes he is ____ in [facility], somewhat angry this morning, labile. He is taking his medications. No EPS. No side effects. Sleeping fairly well, eating with prompting. ASSESSMENT: The patient remains delusional, disoriented, psychotic, gravely disabled, grandiose, still aggressive and agitated at times. PLAN: Continue to monitor and titrate medications as tolerated. Continued safety concerns do persist. JOB# [id number]
--- NOTE | 2016-07-30 20:22 | Internal Medicine Prog Note ---
Internal Medicine Subjective - Subjective Patient seen and examined:: with staff, chart reviewed Patient is:: awake, verbal, interactive Per staff patient is:: no adverse event, noncompliant Internal Medicine Objective - Results Result Diagrams: 07/22/16 06:56 Recent Labs: Laboratory Last Values Sodium 134 mEq/L (136-145) L 07/22/16 06:56 Potassium 4.1 mEq/L (3.5-5.1) 07/22/16 06:56 Chloride 106 mEq/L (98-107) 07/22/16 06:56 Carbon Dioxide 23.0 mEq/L (21.0-31.0) 07/22/16 06:56 Anion Gap 9.1 (7.0-16.0) 07/22/16 06:56 BUN 20 mg/dL (7-25) 07/22/16 06:56 Creatinine 1.0 mg/dL (0.7-1.3) 07/22/16 06:56 Est GFR ( Amer) > 60.0 ml/min (>90) 07/22/16 06:56 Est GFR (Non-Af Amer) > 60.0 ml/min 07/22/16 06:56 BUN/Creatinine Ratio 20.0 07/22/16 06:56 Glucose 105 mg/dL (70-105) 07/22/16 06:56 Calcium 10.5 mg/dL (8.6-10.3) H 07/22/16 06:56 - Physical Exam Vitals and I&O: Vital Signs Temp 98.2 F 07/30/16 20:00 Pulse 77 07/30/16 20:00 Resp 19 07/30/16 20:00 BP 112/74 07/30/16 20:00 Pulse Ox 94 07/30/16 20:00 Intake & Output 07/30/16 07/30/16 07/31/16 06:59 18:59 06:59 Intake Total 120 1200 480 Balance 120 1200 480 Intake: Oral 120 1200 480 Other: # Voids 2 4 3 # Bowel Movements 1 1 Active Medications: Current Medications Acetaminophen (Tylenol) 650 mg PO Q4HR PRN PRN Reason: PAIN OF FEVER >100.5 Stop: 09/18/16 21:45 Al Hydrox/Mg Hydrox/Simethicone (Maalox) 30 ml PO Q6HR PRN PRN Reason: GI DISTRESS Stop: 09/18/16 21:45 Amlodipine Besylate (Norvasc) 5 mg PO DAILY [facility] Stop: 09/19/16 08:59 Last Admin: 07/30/16 08:24 Dose: 5 mg Cholecalciferol (Vitamin D3) 3,000 iu PO DAILY [facility] Stop: 09/19/16 08:59 Last Admin: 07/30/16 08:23 Dose: 3,000 iu Docusate Sodium (Colace) 100 mg PO DAILY [facility] Stop: 09/19/16 08:59 Last Admin: 07/30/16 08:23 Dose: 100 mg Lamotrigine (Lamictal) 100 mg PO BID [facility] PRN Reason: Protocol Stop: 09/19/16 08:59 Last Admin: 07/30/16 17:16 Dose: 100 mg Levetiracetam (Keppra) 500 mg PO DAILY [facility] Stop: 09/19/16 08:59 Last Admin: 07/30/16 08:23 Dose: 500 mg Levetiracetam (Keppra) 1,500 mg PO 1700 [facility] Stop: 09/19/16 16:59 Last Admin: 07/30/16 17:15 Dose: 1,500 mg Lorazepam (Ativan) 0.5 mg PO Q4HR PRN; Protocol PRN Reason: Anxiety Stop: 08/19/16 21:42 Last Admin: 07/30/16 08:23 Dose: 0.5 mg Magnesium Hydroxide (Milk Of Magnesia) 30 ml PO HS PRN PRN Reason: Constipation Stop: 09/18/16 21:45 Risperidone 2 mg/ Risperidone (0.5 mg) 2.5 mg PO Q12H [facility] Stop: 09/28/16 20:59 Simvastatin (Zocor) 20 mg PO HS [facility] PRN Reason: Protocol Stop: 09/19/16 20:59 Last Admin: 07/29/16 20:14 Dose: 20 mg Trazodone HCl (Desyrel) 100 mg PO HS [facility] PRN Reason: Protocol Stop: 09/19/16 20:59 Last Admin: 07/29/16 20:14 Dose: 100 mg Zolpidem Tartrate (Ambien) 5 mg PO HS PRN PRN Reason: Insomnia Stop: 09/18/16 21:42 General: demented HEENT: NC/AT, PERRLA Neck: Supple, No JVD Lungs: CTAB Cardiovascular: RRR, Normal S1, Normal S2 Abdomen: soft non-tender, globular Extremities: excoriation Neurological: no change - Procedures Procedures: Procedures Procedure Code Date GROUP PSYCHOTHERAPY 61738 06/08/15 GROUP PSYCHOTHERAPY GZHZZZZ 06/08/15 Internal Medicine Assmt/Plan - Assessment Assessment: HYPONATREMIA ALOC AGITATION hypercalcemia - Plan Plan: correct lytes fall precaution nutritional support dameon rn Nutritional Asmnt/Malnutr-PDOC - Dietary Evaluation Malnutrition Findings (Please click <Entered> for more info): Nutritional Asmnt/Malnutrition Start: 07/24/16 16: 20 Text: Status: Complete Freq: Document 07/24/16 16:20 GSUN (Rec: 07/24/16 16:36 GSUN [email or web address]) Nutritional Asmnt/Malnutrition Patient General Information Nutritional Screening Diagnosis Diagnosis Paranoid schizophrenia Pertinent Medical Hx/Surgical Hx Hyperlipidemia, hx traumatic brain injury, HTN, anemia, epilepsy, vitamin D defieicny, shizophrenia, hx extensive psychiatric hospitalizations Subjective Information 60 year old male. Pt was pleasant, talkative, very questionable historian as pt kept going off topic and some responses did not make logical sense, such [place] and his ex- alcoholic roommate gave him millions of money. 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 Avg PO itnake 75-100 % of meals, meeting nutritional needs. Pt stated good appetite, food at [facility] is fair/acceptable. Current Diet Order/ Nutrition Support regular Pertinent Medications Maalox, Vitamin D3, colace, MOM Pertinent Labs Reviewed. Nutritional Hx/Data Height 1.8 m Height (Calculated Centimeters) 180.3 Current Weight (lbs) 97.069 kg Weight (Calculated Kilograms) 97.1 Weight (Calculated Grams) 30762.8 [place] Body Weight 172lb Weight Status Overweight GI Symptoms Food Allergies Yes Cultural/Ethnic/Mu-Ism Belief Noted allergies to peach, pt denied, however pt is a questionable historian. Usual diet at home [place] steak, sausage, [place] side up eggs Skin Integrity/Comment: [place] 20. Skin intact. Current %PO Good (75-100%) Estimated Nutritional Goals Calories/Kcals/Kg IBW 172lb/78kg Kcals Calculated 1950-2340kcal (25-30kcal/kg) Protein Calculated 78g (1g/kg) Fluid: ml 1950-2340ml (1ml/kcal) Nutritional Problem 1. Problem Problem No nutritional problems at this time. Intervention/Recommendation Comments 1. Continue with regular diet. Avg PO intake is adequate. Expected Outcomes/Goals Expected Outcomes/Goals 1. PO intake continue to meet at least 75% of estimated nutritional needs.
--- NOTE | 2016-07-31 02:35 | Progress Notes ---
DATE: 07/30/2016 SUBJECTIVE: The patient was seen, chart reviewed, and discussed with staff. The patient remains symptomatic. Staff note he continues to respond to internal stimuli, flight of ideas, bizarre at times, still intrusive, paranoid, and delusional. He believes that he will be going to [place], that he has a lot of money. He is still grandiose, labile, still aggressive at times, better attention ADLs. No side effects to medications. No EPS. Sleeping fairly well and eating well. ASSESSMENT: The patient remains delusional, disoriented, psychotic, and responding to internal stimuli, flight of ideas, still grandiose. PLAN: Continue to monitor. We will increase Risperdal today. Monitor closely for any side effects. JOB# [id number]
--- NOTE | 2016-07-31 13:06 | Internal Medicine Prog Note ---
Internal Medicine Subjective - Subjective Patient seen and examined:: with staff, chart reviewed Patient is:: awake, verbal, interactive Per staff patient is:: no adverse event, noncompliant Internal Medicine Objective - Results Result Diagrams: 07/22/16 06:56 Recent Labs: Laboratory Last Values Sodium 134 mEq/L (136-145) L 07/22/16 06:56 Potassium 4.1 mEq/L (3.5-5.1) 07/22/16 06:56 Chloride 106 mEq/L (98-107) 07/22/16 06:56 Carbon Dioxide 23.0 mEq/L (21.0-31.0) 07/22/16 06:56 Anion Gap 9.1 (7.0-16.0) 07/22/16 06:56 BUN 20 mg/dL (7-25) 07/22/16 06:56 Creatinine 1.0 mg/dL (0.7-1.3) 07/22/16 06:56 Est GFR ( Amer) > 60.0 ml/min (>90) 07/22/16 06:56 Est GFR (Non-Af Amer) > 60.0 ml/min 07/22/16 06:56 BUN/Creatinine Ratio 20.0 07/22/16 06:56 Glucose 105 mg/dL (70-105) 07/22/16 06:56 Calcium 10.5 mg/dL (8.6-10.3) H 07/22/16 06:56 - Physical Exam Vitals and I&O: Vital Signs Temp 98.1 F 07/31/16 06:09 Pulse 60 07/31/16 08:15 Resp 20 07/31/16 07:07 BP 143/90 07/31/16 08:15 Pulse Ox 97 07/31/16 07:07 Intake & Output 07/30/16 07/31/16 07/31/16 18:59 06:59 18:59 Intake Total 1200 480 Balance 1200 480 Intake: Oral 1200 480 Other: # Voids 4 2 # Bowel Movements 1 0 Active Medications: Current Medications Acetaminophen (Tylenol) 650 mg PO Q4HR PRN PRN Reason: PAIN OF FEVER >100.5 Stop: 09/18/16 21:45 Al Hydrox/Mg Hydrox/Simethicone (Maalox) 30 ml PO Q6HR PRN PRN Reason: GI DISTRESS Stop: 09/18/16 21:45 Amlodipine Besylate (Norvasc) 5 mg PO DAILY [facility] Stop: 09/19/16 08:59 Last Admin: 07/31/16 08:15 Dose: 5 mg Cholecalciferol (Vitamin D3) 3,000 iu PO DAILY [facility] Stop: 09/19/16 08:59 Last Admin: 07/31/16 08:14 Dose: 3,000 iu Docusate Sodium (Colace) 100 mg PO DAILY [facility] Stop: 09/19/16 08:59 Last Admin: 07/31/16 08:14 Dose: 100 mg Lamotrigine (Lamictal) 100 mg PO BID [facility] PRN Reason: Protocol Stop: 09/19/16 08:59 Last Admin: 07/31/16 08:14 Dose: 100 mg Levetiracetam (Keppra) 500 mg PO DAILY [facility] Stop: 09/19/16 08:59 Last Admin: 07/31/16 08:14 Dose: 500 mg Levetiracetam (Keppra) 1,500 mg PO 1700 [facility] Stop: 09/19/16 16:59 Last Admin: 07/30/16 17:15 Dose: 1,500 mg Lorazepam (Ativan) 0.5 mg PO Q4HR PRN; Protocol PRN Reason: Anxiety Stop: 08/19/16 21:42 Last Admin: 07/30/16 08:23 Dose: 0.5 mg Magnesium Hydroxide (Milk Of Magnesia) 30 ml PO HS PRN PRN Reason: Constipation Stop: 09/18/16 21:45 Risperidone 2 mg/ Risperidone (0.5 mg) 2.5 mg PO Q12H [facility] Stop: 09/28/16 20:59 Last Admin: 07/31/16 08:15 Dose: 2.5 mg Simvastatin (Zocor) 20 mg PO HS [facility] PRN Reason: Protocol Stop: 09/19/16 20:59 Last Admin: 07/30/16 21:17 Dose: 20 mg Trazodone HCl (Desyrel) 100 mg PO HS [facility] PRN Reason: Protocol Stop: 09/19/16 20:59 Last Admin: 07/30/16 21:18 Dose: 100 mg Zolpidem Tartrate (Ambien) 5 mg PO HS PRN PRN Reason: Insomnia Stop: 09/18/16 21:42 General: demented HEENT: NC/AT, PERRLA Neck: Supple Lungs: CTAB Cardiovascular: RRR, Normal S1, Normal S2 Abdomen: soft non-tender, globular, positive bowel sound Extremities: excoriation Neurological: no change, disorganized - Procedures Procedures: Procedures Procedure Code Date GROUP PSYCHOTHERAPY 10475 06/08/15 GROUP PSYCHOTHERAPY GZHZZZZ 06/08/15 Internal Medicine Assmt/Plan - Assessment Assessment: HYPONATREMIA ALOC AGITATION hypercalcemia - Plan Plan: correct lytes fall precaution nutritional support dameon rn Nutritional Asmnt/Malnutr-PDOC - Dietary Evaluation Malnutrition Findings (Please click <Entered> for more info): Nutritional Asmnt/Malnutrition Start: 07/24/16 16: 20 Text: Status: Complete Freq: Document 07/24/16 16:20 GSUN (Rec: 07/24/16 16:36 GSUN [email or web address]) Nutritional Asmnt/Malnutrition Patient General Information Nutritional Screening Diagnosis Diagnosis Paranoid schizophrenia Pertinent Medical Hx/Surgical Hx Hyperlipidemia, hx traumatic brain injury, HTN, anemia, epilepsy, vitamin D defieicny, shizophrenia, hx extensive psychiatric hospitalizations Subjective Information 60 year old male. Pt was pleasant, talkative, very questionable historian as pt kept going off topic and some responses did not make logical sense, such as pt is [place] and his ex- alcoholic roommate gave him millions of money. 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 Avg PO itnake 75-100 % of meals, meeting nutritional needs. Pt stated good appetite, food at [facility] is fair/acceptable. Current Diet Order/ Nutrition Support regular Pertinent Medications Maalox, Vitamin D3, colace, MOM Pertinent Labs Reviewed. Nutritional Hx/Data Height 1.8 m Height (Calculated Centimeters) 180.3 Current Weight (lbs) 97.069 kg Weight (Calculated Kilograms) 97.1 Weight (Calculated Grams) 44575.8 [place] Body Weight 172lb Weight Status Overweight GI Symptoms Food Allergies Yes Cultural/Ethnic/Synagogue Belief Noted allergies to peach, pt denied, however pt is a questionable historian. Usual diet at home [place] steak, sausage, romina side up eggs Skin Integrity/Comment: [place] 20. Skin intact. Current %PO Good (75-100%) Estimated Nutritional Goals Calories/Kcals/Kg IBW 172lb/78kg Kcals Calculated 1950-2340kcal (25-30kcal/kg) Protein Calculated 78g (1g/kg) Fluid: ml 1950-2340ml (1ml/kcal) Nutritional Problem 1. Problem Problem No nutritional problems at this time. Intervention/Recommendation Comments 1. Continue with regular diet. Avg PO intake is adequate. Expected Outcomes/Goals Expected Outcomes/Goals 1. PO intake continue to meet at least 75% of estimated nutritional needs.
--- NOTE | 2016-08-01 04:29 | Progress Notes ---
DATE: 07/31/2016 SUBJECTIVE: The patient was seen, chart reviewed, and discussed with staff. The patient remains symptomatic, still believes he is going to [place], believes that he has a lot of money and houses. He, however, on a positive note is agreeable to go to [facility]. He is still agitated, still escalates at times, still appearing internally preoccupied, continues with concerns about his psychotic processes and irritability and poor impulse control. Sleeping well and eating well. He is also taking his medications. No EPS. No side effects. ASSESSMENT: The patient remains symptomatic, still delusional and grandiose. PLAN: Continue to monitor continue to titrate medications. We will continue to titrate Risperdal and monitor for any EPS. JOB# [id number]
--- NOTE | 2016-08-01 15:24 | Internal Medicine Prog Note ---
Internal Medicine Subjective - Subjective Patient seen and examined:: with staff, chart reviewed Patient is:: awake, verbal, interactive Per staff patient is:: no adverse event, confused Internal Medicine Objective - Results Result Diagrams: 07/22/16 06:56 Recent Labs: Laboratory Last Values Sodium 134 mEq/L (136-145) L 07/22/16 06:56 Potassium 4.1 mEq/L (3.5-5.1) 07/22/16 06:56 Chloride 106 mEq/L (98-107) 07/22/16 06:56 Carbon Dioxide 23.0 mEq/L (21.0-31.0) 07/22/16 06:56 Anion Gap 9.1 (7.0-16.0) 07/22/16 06:56 BUN 20 mg/dL (7-25) 07/22/16 06:56 Creatinine 1.0 mg/dL (0.7-1.3) 07/22/16 06:56 Est GFR ( Amer) > 60.0 ml/min (>90) 07/22/16 06:56 Est GFR (Non-Af Amer) > 60.0 ml/min 07/22/16 06:56 BUN/Creatinine Ratio 20.0 07/22/16 06:56 Glucose 105 mg/dL (70-105) 07/22/16 06:56 Calcium 10.5 mg/dL (8.6-10.3) H 07/22/16 06:56 - Physical Exam Vitals and I&O: Vital Signs Temp 97.7 F 08/01/16 06:21 Pulse 56 08/01/16 08:15 Resp 19 08/01/16 06:21 BP 142/95 08/01/16 08:15 Pulse Ox 97 08/01/16 06:21 Intake & Output 07/31/16 08/01/16 08/01/16 18:59 06:59 18:59 Intake Total 1200 480 Balance 1200 480 Intake: Oral 1200 480 Other: # Voids 4 4 # Bowel Movements 2 0 Active Medications: Current Medications Acetaminophen (Tylenol) 650 mg PO Q4HR PRN PRN Reason: PAIN OF FEVER >100.5 Stop: 09/18/16 21:45 Al Hydrox/Mg Hydrox/Simethicone (Maalox) 30 ml PO Q6HR PRN PRN Reason: GI DISTRESS Stop: 09/18/16 21:45 Amlodipine Besylate (Norvasc) 5 mg PO DAILY [facility] Stop: 09/19/16 08:59 Last Admin: 08/01/16 08:15 Dose: 5 mg Cholecalciferol (Vitamin D3) 3,000 iu PO DAILY [facility] Stop: 09/19/16 08:59 Last Admin: 08/01/16 08:15 Dose: 3,000 iu Docusate Sodium (Colace) 100 mg PO DAILY [facility] Stop: 09/19/16 08:59 Last Admin: 08/01/16 08:16 Dose: 100 mg Lamotrigine (Lamictal) 100 mg PO BID [facility] PRN Reason: Protocol Stop: 09/19/16 08:59 Last Admin: 08/01/16 08:15 Dose: 100 mg Levetiracetam (Keppra) 500 mg PO DAILY [facility] Stop: 09/19/16 08:59 Last Admin: 08/01/16 08:16 Dose: 500 mg Levetiracetam (Keppra) 1,500 mg PO 1700 [facility] Stop: 09/19/16 16:59 Last Admin: 07/31/16 16:13 Dose: 1,500 mg Lorazepam (Ativan) 0.5 mg PO Q4HR PRN; Protocol PRN Reason: Anxiety Stop: 08/19/16 21:42 Last Admin: 07/30/16 08:23 Dose: 0.5 mg Magnesium Hydroxide (Milk Of Magnesia) 30 ml PO HS PRN PRN Reason: Constipation Stop: 09/18/16 21:45 Risperidone (Risperdal) 3 mg PO Q12H [facility] Stop: 09/30/16 11:48 Simvastatin (Zocor) 20 mg PO HS [facility] PRN Reason: Protocol Stop: 09/19/16 20:59 Last Admin: 07/31/16 20:38 Dose: 20 mg Trazodone HCl (Desyrel) 100 mg PO HS [facility] PRN Reason: Protocol Stop: 09/19/16 20:59 Last Admin: 07/31/16 20:38 Dose: 100 mg Zolpidem Tartrate (Ambien) 5 mg PO HS PRN PRN Reason: Insomnia Stop: 09/18/16 21:42 General: demented HEENT: NC/AT, PERRLA Neck: Supple, No JVD Lungs: CTAB Cardiovascular: RRR, Normal S1, Normal S2 Abdomen: soft non-tender, globular Extremities: excoriation Neurological: no change - Procedures Procedures: Procedures Procedure Code Date GROUP PSYCHOTHERAPY 87147 06/08/15 GROUP PSYCHOTHERAPY GZHZZZZ 06/08/15 Internal Medicine Assmt/Plan - Assessment Assessment: HYPONATREMIA ALOC AGITATION hypercalcemia - Plan Plan: correct lytes fall precaution nutritional support dameon rn Nutritional Asmnt/Malnutr-PDOC - Dietary Evaluation Malnutrition Findings (Please click <Entered> for more info): Nutritional Asmnt/Malnutrition Start: 07/24/16 16: 20 Text: Status: Complete Freq: Document 07/24/16 16:20 GSUN (Rec: 07/24/16 16:36 GSUN [email or web address]) Nutritional Asmnt/Malnutrition Patient General Information Nutritional Screening Diagnosis Diagnosis Paranoid schizophrenia Pertinent Medical Hx/Surgical Hx Hyperlipidemia, hx traumatic brain injury, HTN, anemia, epilepsy, vitamin D defieicny, shizophrenia, hx extensive psychiatric hospitalizations Subjective Information 60 year old male. Pt was pleasant, talkative, very questionable historian as pt kept going off topic and some responses did not make logical sense, such as pt is flying home [place] and his ex- alcoholic roommate gave him millions of money. 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 Avg PO itnake 75-100 % of meals, meeting nutritional needs. Pt stated good appetite, food at [facility] is fair/acceptable. Current Diet Order/ Nutrition Support regular Pertinent Medications Maalox, Vitamin D3, colace, MOM Pertinent Labs Reviewed. Nutritional Hx/Data Height 1.8 m Height (Calculated Centimeters) 180.3 Current Weight (lbs) 97.069 kg Weight (Calculated Kilograms) 97.1 Weight (Calculated Grams) 68451.8 [place] Body Weight 172lb Weight Status Overweight GI Symptoms Food Allergies Yes Cultural/Ethnic/Pentecostalism Belief Noted allergies to peach, pt denied, however pt is a questionable historian. Usual diet at home [place] steak, sausage, romina side up eggs Skin Integrity/Comment: [place] 20. Skin intact. Current %PO Good (75-100%) Estimated Nutritional Goals Calories/Kcals/Kg IBW 172lb/78kg Kcals Calculated 1950-2340kcal (25-30kcal/kg) Protein Calculated 78g (1g/kg) Fluid: ml 1950-2340ml (1ml/kcal) Nutritional Problem 1. Problem Problem No nutritional problems at this time. Intervention/Recommendation Comments 1. Continue with regular diet. Avg PO intake is adequate. Expected Outcomes/Goals Expected Outcomes/Goals 1. PO intake continue to meet at least 75% of estimated nutritional needs.
--- NOTE | 2016-08-02 02:42 | Progress Notes ---
DATE: 08/01/2016 SUBJECTIVE: The patient was seen, chart reviewed, and discussed with staff. The patient still remains symptomatic, still somewhat disoriented, confused, and believes he is going to [place], but agreeable to go to [facility]. He is less agitated, more calm and cooperative, seems to be more amenable to interview, some confusion remains to be noted, but it seems that this is his baseline and he is approaching his baseline. He is tolerant to medications, taking medications at current dose. No overt side effects. ASSESSMENT: The patient is still symptomatic, still with some residual psychotic symptoms, but improvement noted. PLAN: We will continue to monitor. We will increase Risperdal to 3 mg twice daily to target these residual psychotic symptoms, otherwise there is improvement noted, seems to be calmer and more engaged. JOB# [id number]
--- NOTE | 2016-08-02 13:51 | Internal Medicine Prog Note ---
Internal Medicine Subjective - Subjective Patient seen and examined:: with staff, chart reviewed Patient is:: awake, verbal, interactive Per staff patient is:: no adverse event, no episodes of fall Internal Medicine Objective - Results Result Diagrams: 07/22/16 06:56 Recent Labs: Laboratory Last Values Sodium 134 mEq/L (136-145) L 07/22/16 06:56 Potassium 4.1 mEq/L (3.5-5.1) 07/22/16 06:56 Chloride 106 mEq/L (98-107) 07/22/16 06:56 Carbon Dioxide 23.0 mEq/L (21.0-31.0) 07/22/16 06:56 Anion Gap 9.1 (7.0-16.0) 07/22/16 06:56 BUN 20 mg/dL (7-25) 07/22/16 06:56 Creatinine 1.0 mg/dL (0.7-1.3) 07/22/16 06:56 Est GFR ( Amer) > 60.0 ml/min (>90) 07/22/16 06:56 Est GFR (Non-Af Amer) > 60.0 ml/min 07/22/16 06:56 BUN/Creatinine Ratio 20.0 07/22/16 06:56 Glucose 105 mg/dL (70-105) 07/22/16 06:56 Calcium 10.5 mg/dL (8.6-10.3) H 07/22/16 06:56 - Physical Exam Vitals and I&O: Vital Signs Temp 97.3 F 08/02/16 11:03 Pulse 73 08/02/16 11:03 Resp 18 08/02/16 11:03 BP 144/107 08/02/16 11:03 Pulse Ox 98 08/02/16 11:03 Intake & Output 08/01/16 08/02/16 08/02/16 18:59 06:59 18:59 Intake Total 1000 Balance 1000 Intake: Oral 1000 Other: # Voids 3 # Bowel Movements 1 Active Medications: Current Medications Acetaminophen (Tylenol) 650 mg PO Q4HR PRN PRN Reason: PAIN OF FEVER >100.5 Stop: 09/18/16 21:45 Al Hydrox/Mg Hydrox/Simethicone (Maalox) 30 ml PO Q6HR PRN PRN Reason: GI DISTRESS Stop: 09/18/16 21:45 Amlodipine Besylate (Norvasc) 5 mg PO DAILY [facility] Stop: 09/19/16 08:59 Last Admin: 08/02/16 09:04 Dose: 5 mg Cholecalciferol (Vitamin D3) 3,000 iu PO DAILY [facility] Stop: 09/19/16 08:59 Last Admin: 08/02/16 09:03 Dose: 3,000 iu Docusate Sodium (Colace) 100 mg PO DAILY [facility] Stop: 09/19/16 08:59 Last Admin: 08/02/16 09:04 Dose: 100 mg Lamotrigine (Lamictal) 100 mg PO BID [facility] PRN Reason: Protocol Stop: 09/19/16 08:59 Last Admin: 08/02/16 09:04 Dose: 100 mg Levetiracetam (Keppra) 500 mg PO DAILY [facility] Stop: 09/19/16 08:59 Last Admin: 08/02/16 09:04 Dose: 500 mg Levetiracetam (Keppra) 1,500 mg PO 1700 [facility] Stop: 09/19/16 16:59 Last Admin: 08/01/16 16:44 Dose: 1,500 mg Lorazepam (Ativan) 0.5 mg PO Q4HR PRN; Protocol PRN Reason: Anxiety Stop: 08/19/16 21:42 Last Admin: 07/30/16 08:23 Dose: 0.5 mg Magnesium Hydroxide (Milk Of Magnesia) 30 ml PO HS PRN PRN Reason: Constipation Stop: 09/18/16 21:45 Risperidone (Risperdal) 3 mg PO Q12HR [facility] Stop: 09/30/16 20:59 Last Admin: 08/02/16 09:04 Dose: 3 mg Simvastatin (Zocor) 20 mg PO HS [facility] PRN Reason: Protocol Stop: 09/19/16 20:59 Last Admin: 08/01/16 20:05 Dose: 20 mg Trazodone HCl (Desyrel) 100 mg PO HS [facility] PRN Reason: Protocol Stop: 09/19/16 20:59 Last Admin: 08/01/16 20:06 Dose: 100 mg Zolpidem Tartrate (Ambien) 5 mg PO HS PRN PRN Reason: Insomnia Stop: 09/18/16 21:42 General: demented HEENT: NC/AT, PERRLA Neck: Supple, No JVD Lungs: CTAB Cardiovascular: RRR, Normal S1, Normal S2 Abdomen: soft non-tender, globular, non-distended, positive bowel sound Extremities: excoriation Neurological: no change - Procedures Procedures: Procedures Procedure Code Date GROUP PSYCHOTHERAPY 33210 06/08/15 GROUP PSYCHOTHERAPY GZHZZZZ 06/08/15 Internal Medicine Assmt/Plan - Assessment Assessment: HYPONATREMIA ALOC AGITATION hypercalcemia - Plan Plan: correct lytes fall precaution nutritional support dameon rn Nutritional Asmnt/Malnutr-PDOC - Dietary Evaluation Malnutrition Findings (Please click <Entered> for more info): Nutritional Asmnt/Malnutrition Start: 07/24/16 16: 20 Text: Status: Complete Freq: Document 07/24/16 16:20 GSUN (Rec: 07/24/16 16:36 GSUN [email or web address]) Nutritional Asmnt/Malnutrition Patient General Information Nutritional Screening Diagnosis Diagnosis Paranoid schizophrenia Pertinent Medical Hx/Surgical Hx Hyperlipidemia, hx traumatic brain injury, HTN, anemia, epilepsy, vitamin D defieicny, shizophrenia, hx extensive psychiatric hospitalizations Subjective Information 60 year old male. Pt was pleasant, talkative, very questionable historian as pt kept going off topic and some responses did not make logical sense, such as [place] and his ex- alcoholic roommate gave him millions of money. 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 Avg PO itnake 75-100 % of meals, meeting nutritional needs. Pt stated good appetite, food at [facility] is fair/acceptable. Current Diet Order/ Nutrition Support regular Pertinent Medications Maalox, Vitamin D3, colace, MOM Pertinent Labs Reviewed. Nutritional Hx/Data Height 1.8 m Height (Calculated Centimeters) 180.3 Current Weight (lbs) 97.069 kg Weight (Calculated Kilograms) 97.1 Weight (Calculated Grams) 81613.8 [place] Body Weight 172lb Weight Status Overweight GI Symptoms Food Allergies Yes Cultural/Ethnic/Oriental Orthodox Belief Noted allergies to peach, pt denied, however pt is a questionable historian. Usual diet at home [place] steak, sausage, romina side up eggs Skin Integrity/Comment: [place] 20. Skin intact. Current %PO Good (75-100%) Estimated Nutritional Goals Calories/Kcals/Kg IBW 172lb/78kg Kcals Calculated 1950-2340kcal (25-30kcal/kg) Protein Calculated 78g (1g/kg) Fluid: ml 1950-2340ml (1ml/kcal) Nutritional Problem 1. Problem Problem No nutritional problems at this time. Intervention/Recommendation Comments 1. Continue with regular diet. Avg PO intake is adequate. Expected Outcomes/Goals Expected Outcomes/Goals 1. PO intake continue to meet at least 75% of estimated nutritional needs.
--- NOTE | 2016-08-02 21:41 | Discharge Summary ---
DATE OF DISCHARGE: 08/02/2016 HISTORY OF PRESENT ILLNESS: A 60-year-old male, brought to the hospital with schizophrenia, disorganized, psychotic, delusional, talking about different topics, being present at a [place] for example. PAST MEDICAL HISTORY: As noted. Please see full H and P, includes TBI. ALLERGIES: PENICILLIN and SULFA. MEDICATIONS: Reviewed. FAMILY HISTORY: Reviewed. SOCIAL HISTORY: Living at [place] [facility]. MENTAL STATUS EXAMINATION: Please see full psych eval for details. 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 MEDICAL DIAGNOSES: Traumatic brain injury, please see full H and P for details. LABORATORY DATA: Reviewed. HOSPITAL COURSE: After initial assessment, medications were titrated appropriately, his antipsychotics were titrated. He remained pretty psychotic and delusional and aggressive during the first part of the hospitalization, but as the medications were adjusted, he improved, calmed down. No longer aggressive, no longer agitated. He did have some persistent delusions about going to [place], but was not acting on these delusions and they appeared to be fixed. He did have better insight, taking medications, following the rules and directions. CONDITION UPON DISCHARGE: Improved, better attention ADLs, fair eye contact, speech was within normal limits. Mood is "okay." Affect constricted. Thought processes were more linear. No SI, no HI. No auditory hallucinations. No visual hallucinations. The patient still verbalizes that he eventually at some point in the future wants to go back to [place], but was agreeable to go to [facility], no longer believing for example he was present at a [facility], hope, motivated, optimistic, sleeping well, no aggression. 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 MEDICAL DIAGNOSES: Traumatic brain injury. Please see full psych eval for details. PROGNOSIS: If the patient follows up with Psychiatry and takes his medications as directed and remains treatment compliant, prognosis will improve, otherwise guarded. JOB# [id number]
== END 2016-08-02 15:10 | DRG 885 ==
LOC: GERO 19:30
PROVIDERS: ADMIT Psychiatry & Neurology Psychiatry; ATTEND Psychiatry & Neurology Psychiatry
DX: F20.0 Paranoid schizophrenia (principal); E87.1 Hypo-osmolality and hyponatremia; E83.52 Hypercalcemia; F29 Unspecified psychosis not due to a substance or known physiological condition; Z88.2 Allergy status to sulfonamides; Z88.0 Allergy status to penicillin; Z91.14 Patient's other noncompliance with medication regimen; Z87.820 Personal history of traumatic brain injury
CPT/HCPCS: 36415-UA; 80048-TC; 90899; 94760; G0410; Z7610